=== PATIENT | male | born 1950 | race Caucasian/White ===

== ENCOUNTER 2016-11-23 15:13 | Inpatient (IN) | payer OTHER ==
[~2016-11-23] VITALS: Ht 180.3 cm; Wt 94.6 kg
[~2016-11-23 15:13] MED LIST: AMT10 PO; ASPEC81 PO; FLV1 PO; LEVO88TA3 PO; LTN/2025 PO; MTH25; MULTCAP33 PO; PRED-301 PO; ROSU5TAB PO; VITAMIN D PO
[2016-11-23] MEDS ORDERED: SODIUM CHLORIDE 0.9% 1000ML 1,000 ML IV SCH (15:45)
[2016-11-23] MEDS ORDERED: LABETALOL HCL IV 5 MG/ML 20ML IV STA (15:45)
[2016-11-23 16:15] LABS: BASO % 0.4 %; BASO ABS # 0.03 K/uL (0-0.2); COMPLETE YES; EOS % 3.7 %; IG% 0.4 %; LYMPH % 22.1 %; LYMPH ABS # 1.66 K/uL (1.2-3.4); MEAN CELL VOLUME 93.2 fL (80-100); MEAN CORPUSCULAR HEMOGLOBIN 31.9 pg (25-34); MEAN CORPUSCULAR HGB CONC 34.3 g/dl (32-36); MEAN PLATELET VOLUME 11.4 fL (7.4-10.4); MONO % 8.7 %; NEUT % 64.7 %; PLATELET COUNT 164 K/uL (130-400); RED BLOOD COUNT 4.29 M/uL (4.7-6.1); WHITE BLOOD COUNT 7.51 K/uL (4.8-10.8)
[2016-11-23 16:29] LABS: PROTHROMBIN TIME (PATIENT) 10.7 SECONDS (9.0-12.0)
[2016-11-23 16:37] LABS: BUN/CREATININE RATIO 17.6 (10-20); CALCIUM 8.6 mg/dl (8.5-10.1); CREATININE 0.97 mg/dl (0.60-1.40); POTASSIUM 3.8 mmol/L (3.5-5.1)
[2016-11-23 16:48] LABS: CKMB/CK RATIO 2.2 (0-3.0)
--- NOTE | 2016-11-23 17:32 | DIAGNOSTIC IMAGING REPORT ---
CT SCAN OF THE BRAIN WITHOUT IV CONTRAST CLINICAL HISTORY: Strokelike symptoms. COMPARISON STUDY: CT of the brain dated 09/22/2014. TECHNIQUE: Unenhanced axial CT scan of the brain is performed from the vertex to the skull base. Automated dose control exposure was utilized. CT DOSE: 687.98 mGy.cm FINDINGS: Brain parenchyma: The brain parenchyma is normal in appearance. There is no hemorrhage, mass effect, or evidence of acute territorial ischemia by CT criteria. Espinal-white matter is preserved. No extra-axial fluid collection is seen. Ventricles, sulci, cisterns: Normal in configuration. Intracranial vasculature: There is trace mucosal thickening in the left maxillary antrum. The remaining visualized intracranial vasculature at the skull base is normal in appearance. Calvarium: Unremarkable. Sinuses and mastoids: The visualized paranasal sinuses are clear. The mastoid air cells are well pneumatized. Orbits: The bony orbits are grossly intact. IMPRESSION: There is no hemorrhage, mass effect, or evidence of acute territorial ischemia by CT criteria. Electronically signed by: Juan Palmer M.D. 11/23/2016 5:30 PM
[2016-11-23] MEDS ORDERED: ASPIRIN 324 MG CHEW PO STA (17:39)
--- NOTE | 2016-11-23 17:41 | DIAGNOSTIC IMAGING REPORT ---
SINGLE VIEW CHEST CLINICAL HISTORY: Strokelike symptoms. Hypertension. FINDINGS: An AP, portable, upright chest radiograph is compared to study dated 09/22/2014 and correlated with chest CT dated 10/29/2011. The examination is mildly degraded by portable technique and patient rotation. The heart is mildly enlarged. The pulmonary vasculature is noncongested. The lungs and pleural spaces are clear. No pneumothorax is seen. The bony thorax is grossly intact. IMPRESSION: Mild cardiac enlargement with no acute cardiopulmonary abnormality. Electronically signed by: Juan Palmer M.D. 11/23/2016 5:39 PM
[2016-11-23] MEDS ORDERED: CYM/30 PO (18:01)
[2016-11-23] MEDS ORDERED: PHARMACIST DISCHARGE MED REC CONSULT PRN ×2 (18:15→22:45)
[2016-11-23] MEDS ORDERED: NITROGLYCERIN 0.4 MG SL PER TAB CHARGE SL PRN (18:15)
[2016-11-23] MEDS ORDERED: ONDANSETRON INJ 2 MG/ML 2 ML VIAL IV PRN (18:15)
[2016-11-23] MEDS ORDERED: ZOLPIDEM TARTRATE 5 MG TAB PO PRN (18:15)
[2016-11-23] MEDS ORDERED: ACETAMINOPHEN 325 MG TAB PO PRN (18:15)
[2016-11-23] MEDS ORDERED: POLYETHYLENE (MIRALAX) 17 GM PACK PO PRN (18:15)
[2016-11-23] MEDS ORDERED: ALUMINUM/MAGNESIUM/SIMETH (MAALOX MAX) 30 ML UDC PO PRN (18:15)
[2016-11-23] MEDS ORDERED: MAGNESIUM HYDROXIDE SUSP 30 ML UDC PO PRN (18:15)
--- NOTE | 2016-11-23 18:19 | History and Physical ---
History & Physical Date & Time of Service: Nov 23, 2016 at 18:19 Chief Complaint: Stroke Like Symptoms Primary Care Physician: Annabelle Hart D.O. History of Present Illness Source: patient The patient is a 66 year old male with past medical hx of HTN , hyperlipidemia , hypothyroidism , presented to ED with complain of rt sided transient weakness happened approx 2 hrs prior to arrival to ED today afternoon pt felt sudden onset of rt foot numbness , weakness -as if his rt foot giving away/slipping , did not sustain a fall , started to experience tingling numbness of rt arm rapidly the sensation changed to lack of sensation , Rt arm felt very heavy , can not lift it felt nauseous , headache , Dizzy and lightheaded felt confused , could not figure out how to unlock his I phone , briefly remembers he was holding his I phone with left hand and could not figure out what he was doing his symptom lasted for few minutes then resolved did not had any chest pain or SOB , no palpitation felt dizzy and lightheaded after arrival to ED he was completely symptom free other than continued numb feeling on rt arm which gradually improved pt's BP was markedly elevated 207/157 on arrival to ED during my Interview -pt was very coherent , no visual symptom , no dysarthria- concern about stoke as his older brother had similar symptom at his Age and suffered multiple mini strokes Past Medical/Surgical History Medical Problems: (1) Benign hypertension Status: Chronic (2) Chronic osteoarthritis Status: Chronic (3) Hiatal hernia Status: Chronic (4) History of urinary calculi Status: Chronic (5) Hyperlipidemia Status: Chronic (6) Hypothyroidism Status: Chronic (7) Rheumatoid arthritis Status: Chronic Surgical Problems: (1) Status post lumbar surgery Status: Chronic Family History Hypertension Social History Smoking Status: Never Smoker Marital Status: Occupational Status: employed Immunizations History of Influenza Vaccine: No History of Tetanus Vaccine?: Yes Tetanus Immunization Date: Jun 18, 2011 History of Pneumococcal: No History of Hepatitis B Vaccine: Unknown Multi-Drug Resistant Organisms History of MDRO: No Allergies Coded Allergies: Eggs or Egg-derived Products (Verified Allergy, Unknown, unknown, 11/23/16) Influenza Vaccine Live (Verified Allergy, Unknown, ., 11/23/16) Penicillins (Verified Allergy, Unknown, ., 11/23/16) Cerivastatin (Verified Adverse Reaction, Intermediate, elevated CPK, 1/1/ 17) Pravastatin (Verified Adverse Reaction, Intermediate, elevated LFT's, ) Simvastatin (Verified Adverse Reaction, Intermediate, elevated LFT's, ) Morphine (Verified Adverse Reaction, Mild, abnormal sensorium, 11/23/16) Codeine (Verified Adverse Reaction, Unknown, Confusion,nausea., 11/23/16) Home Medications Scheduled Amitriptyline Hcl (Elavil *), 10 MG PO HS Aspirin Enteric Coated (Ecotrin Or Generic *), 81 MG PO DAILY Benazepril/Hctz (Lotensin Hct), 1 TAB PO DAILY Duloxetine HCl (Cymbalta), 1 CAP PO DAILY Folic Acid (Folic Acid), 1 MG PO DAILY Levothyroxine Sodium (Levothyroxine Sodium), 88 MG PO DAILY Multiple Vitamins W/ Minerals (Preservision Areds), 1 CAP PO BID Rosuvastatin Calcium (Crestor), 5 MG PO DAILY [Vitamin D], 1 TAB PO DAILY Review of Systems Constitutional: + fatigue, + sweats, + weakness Eyes: + diplopia (bluured vision transiently ), + worsening of vision Respiratory: No cough, No dyspnea at rest, No dyspnea on exertion, No hemoptysis, No problem reported, No shortness of breath, No sputum, No wheezing Neurologic: + balance problems, + numbness/tingling, + paralysis, + problem reported (confusion ), + vertigo, + weakness Physical Exam Vital Signs Date Time Temp Pulse Resp B/P Pulse Ox O2 Delivery O2 Flow Rate FiO2 11/23/16 17:56 64 17 154/99 97 11/23/16 17:04 66 17 152/87 94 Room Air 11/23/16 16:19 93 Room Air 11/23/16 16:19 65 17 142/89 93 Room Air 11/23/16 16:14 63 18 173/99 97 Room Air 11/23/16 15:18 36.3 79 16 207/129 99 Room Air General Appearance: no apparent distress Head: normocephalic, atraumatic Eyes: PERRL, EOMI Neck: supple, no adenopathy, thyroid normal, no JVD, no carotid bruits, trachea midline Respiratory/Chest: chest non-tender, lungs clear, normal breath sounds, no respiratory distress Cardiovascular: regular rate, rhythm, no edema, no gallop, no JVD, no murmur, normal peripheral pulses Abdomen/GI: normal bowel sounds, non tender, soft Neurologic/Psych: alert, normal mood/affect, oriented x 3, + motor weakness ( rt arm weakness 4/5 ), + pertinent finding (mild weakness on rt arm ) Skin: normal color, warm/dry, no rash Lymphatic: no adenopathy Diagnostics Laboratory Results Results Past 24 Hours Test 11/23/16 16:03 11/23/16 18:14 Range/Units White Blood Count 7.51 4.8-10.8 K/uL Red Blood Count 4.29 4.7-6.1 M/uL Hemoglobin 13.7 14.0-18.0 g/dL Hematocrit 40.0 42-52 % Mean Corpuscular Volume 93.2 80-100 fL Mean Corpuscular Hemoglobin 31.9 25-34 pg Mean Corpuscular Hemoglobin Concent 34.3 32-36 g/dl Platelet Count 164 130-400 K/uL Mean Platelet Volume 11.4 7.4-10.4 fL Neutrophils (%) (Auto) 64.7 % Lymphocytes (%) (Auto) 22.1 % Monocytes (%) (Auto) 8.7 % Eosinophils (%) (Auto) 3.7 % Basophils (%) (Auto) 0.4 % Neutrophils # (Auto) 4.86 1.4-6.5 K/uL Lymphocytes # (Auto) 1.66 1.2-3.4 K/uL Monocytes # (Auto) 0.65 0.11-0.59 K/uL Eosinophils # (Auto) 0.28 0-0.5 K/uL Basophils # (Auto) 0.03 0-0.2 K/uL RDW Standard Deviation 41.3 36.4-46.3 fL RDW Coefficient of Variation 12.2 11.5-14.5 % Immature Granulocyte % (Auto) 0.4 % Immature Granulocyte # (Auto) 0.03 0.00-0.02 K/uL Prothrombin Time 10.7 9.0-12.0 SECONDS Prothromb Time International Ratio 1.0 0.9-1.1 Activated Partial Thromboplast Time 24.9 21.0-31.0 SECONDS Partial Thromboplastin Ratio 1.0 Sodium Level 143 136-145 mmol/L Potassium Level 3.8 3.5-5.1 mmol/L Chloride Level 107 98-107 mmol/L Carbon Dioxide Level 29 21-32 mmol/L Anion Gap 7.0 3-11 mmol/L Blood Urea Nitrogen 17 7-18 mg/dl Creatinine 0.97 0.60-1.40 mg/dl Est Creatinine Clear Calc Drug Dose 88.1 ml/min Estimated GFR () 93.9 Estimated GFR (Non- 81.0 BUN/Creatinine Ratio 17.6 10-20 Random Glucose 112 70-99 mg/dl Calcium Level 8.6 8.5-10.1 mg/dl Total Creatine Kinase 98 39-308 U/L Creatine Kinase MB 2.2 0.5-3.6 ng/ml Creatine Kinase MB Ratio 2.2 0-3.0 Troponin I 0.113 0-0.045 ng/ml Diagnostic Radiology CT SCAN OF THE BRAIN WITHOUT IV CONTRAST IMPRESSION: There is no hemorrhage, mass effect, or evidence of acute territorial ischemia by CT criteria. CXR normal EKG sinus rhythm Impression Assessment and Plan (1) TIA (transient ischemic attack) Status: Acute Assessment & Plan: Pt's symptom suggestive for TIA sudden onset of rt sided weakness, resolved in few minutes need to Rule out CVA -pt has multiple risk factors :HTN , hyperlipidemia , Family hx ( Brother having stroke /CAD s/p CABG at age 60's /another brother has Factor S deficiency ) ) admit to tele MRI OF BRAIN WITH AND WITH OUT CONTRAST MRA OF BRAIN /TUOLUMNE OF CRUMP cont Aspirin ; will need addition of Plavix if MRI of brain shows evidence of Acute CVA Hypercoagulable workup ordered including Factor S /Factor 5 /Protein C deficiency Judicial control of Blood pressure to allow permissive HTN for cerebral perfusion tele monitor to assess for arrhythmia /Afib ( no prior hx -EKG in ED shows NSR ) Carotid Doppler to assess carotid stenosis Fasting lipid panel in AM for risk stratification ECHO ordered for assessment of PFO , cardiac thrombus Neurology eval requested HTN: presented with accelerated HTN BP improved after some time cont out pt meds BP should not be lowered more than 160-170 SBP to allow adequate cerebral perfusion in setting of TIA /CVA ECHO to assess hypertensive cardiomyopathy HYPERLIPIDEMIA: cont out pt Statin fasting lipid panel ordered MILD ELEVATION OF TROPONIN : due to hypertensive urgency follow serial labs pt denies of any chest pain , EKG no ischemic change ECHO to asses any wall motion abnormality HYPOTHYROIDISM ; cont Levothyroxine TSH -wnl FULL CODE DVT PROPHYLAXIS : moderate risk Sub q heparin scd and teds DISPOSITION : admit to tele discharge to home when medically stable Medicine follow up with Dr Annabelle Hart VTE Prophylaxis VTE Risk Assessment Done? Y/N: Yes Risk Level: Moderate
--- NOTE | 2016-11-23 18:52 | EMERGENCY ROOM VISIT NOTE ---
History Report prepared by Angely: Kike Crawford Under the Supervision of: Dr. Santos Knott M.D. First contact with patient: 15:28 Chief Complaint: STROKE SYMPTOMS Stated Complaint: STROKE LIKE SYMPTOMS Nursing Triage Summary: Patient states he was upstairs in his has at 2pm today and he was walking around bed and felt like his foot was slipping on the floor and then "my whole right leg went numb" and then he went downstairs and his "right arm wouldn't move" and "I got really nauseated" and then he tried to pick of his cell phone and "I couldn't coordinate my thoughts to check the weather." Pt adds that pt c/o dizziness since 829 History of Present Illness The patient is a 66 year old male who presents to the Emergency Room with complaints of an episode of right sided neurologic symptoms beginning 1.5 hours ago. He states that his symptoms began with abnormal sensations in his right foot. He states "it felt like my right foot was sliding on the floor". The patient then developed right leg numbness, and then right arm "heaviness". He states that he felt a little confused as well. He states that these symptoms lasted for about a minute and a half. The patient has associated nausea, feeling "unsteady", and headache which all began when he woke up this morning. He denies any runny nose, visual changes, or chest pain. He notes that his brother has a history of a stroke at a similar age. The patient has no history of stroke, or heart disease. He denies any recent falls or trauma. He piotr any recent medication changes. Source of History: patient Onset: 1.5 hours ago Position: other (right side) Symptom Intensity: 1.5 minutes long Quality: other (neurologic symptoms) Timing: other (episode) Associated Symptoms: + headache, + nausea, No chest pain Note: The patient denies any runny nose, or visual changes. He has associated feeling "unsteady". Review of Systems See HPI for pertinent positives & negatives. A total of 10 systems reviewed and were otherwise negative. Past Medical & Surgical Medical Problems: (1) Benign hypertension (2) Chronic osteoarthritis (3) Hiatal hernia (4) History of urinary calculi (5) Hyperlipidemia (6) Hypothyroidism (7) Rheumatoid arthritis (8) TIA (transient ischemic attack) Surgical Problems: (1) Status post lumbar surgery Family History Hypertension Social History Smoking Status: Never Smoker Alcohol Use: occasionally Marital Status: Housing Status: lives with significant other Occupation Status: employed Current/Historical Medications Scheduled Amitriptyline Hcl (Elavil *), 10 MG PO HS Aspirin Enteric Coated (Ecotrin Or Generic *), 81 MG PO DAILY Benazepril/Hctz (Lotensin Hct), 1 TAB PO DAILY Duloxetine HCl (Cymbalta), 1 CAP PO DAILY Folic Acid (Folic Acid), 1 MG PO DAILY Levothyroxine Sodium (Levothyroxine Sodium), 88 MG PO DAILY Multiple Vitamins W/ Minerals (Preservision Areds), 1 CAP PO BID Rosuvastatin Calcium (Crestor), 5 MG PO DAILY [Vitamin D], 1 TAB PO DAILY Allergies Coded Allergies: Eggs or Egg-derived Products (Verified Allergy, Unknown, unknown, 11/23/16) Influenza Vaccine Live (Verified Allergy, Unknown, ., 11/23/16) Penicillins (Verified Allergy, Unknown, ., 11/23/16) Cerivastatin (Verified Adverse Reaction, Intermediate, elevated CPK, ) Pravastatin (Verified Adverse Reaction, Intermediate, elevated LFT's, ) Simvastatin (Verified Adverse Reaction, Intermediate, elevated LFT's, ) Morphine (Verified Adverse Reaction, Mild, abnormal sensorium, 11/23/16) Codeine (Verified Adverse Reaction, Unknown, Confusion,nausea., 11/23/16) Physical Exam Vital Signs Date Time Temp Pulse Resp B/P Pulse Ox O2 Delivery O2 Flow Rate FiO2 11/23/16 17:56 64 17 154/99 97 11/23/16 17:04 66 17 152/87 94 Room Air 11/23/16 16:19 93 Room Air 11/23/16 16:19 65 17 142/89 93 Room Air 11/23/16 16:14 63 18 173/99 97 Room Air 11/23/16 15:18 36.3 79 16 207/129 99 Room Air Physical Exam GENERAL: Patient is anxious appearing and in no acute distress. HEENT: No acute trauma, normocephalic atraumatic, mucous membranes moist, no nasal congestion, no scleral icterus. NECK: No stridor, no adenopathy, no meningismus, trachea is midline. LUNGS: No dyspnea. Clear to auscultation and equal bilaterally. No wheeze, no rhonchi. HEART: Regular rate and rhythm. No murmurs, rubs, gallops appreciated. ABDOMEN: Soft, nontender, bowel sounds positive, no masses appreciated, no peritonitis. BACK: No midline tenderness, no CVA tenderness EXTREMITIES: Normal motion all extremities, no cyanosis, no edema. NEUROLOGIC: Alert and oriented, no acute motor or sensory deficits, no focal weakness, cranial nerves grossly intact. SKIN: No rash, no jaundice, no diaphoresis. Medical Decision & Procedures ER Provider Diagnostic Interpretation: X ray results and stated below per my interpretation and radiologist interpretation. Other radiology results and stated below per my review and radiologist interpretation: SINGLE VIEW CHEST FINDINGS: An AP, portable, upright chest radiograph is compared to study dated 09/22/2014 and correlated with chest CT dated 10/29/2011. The examination is mildly degraded by portable technique and patient rotation. The heart is mildly enlarged. The pulmonary vasculature is noncongested. The lungs and pleural spaces are clear. No pneumothorax is seen. The bony thorax is grossly intact. IMPRESSION: Mild cardiac enlargement with no acute cardiopulmonary abnormality. Electronically signed by: Juan Palmer M.D. CT SCAN OF THE BRAIN WITHOUT IV CONTRAST FINDINGS: Brain parenchyma: The brain parenchyma is normal in appearance. There is no hemorrhage, mass effect, or evidence of acute territorial ischemia by CT criteria. Espinal-white matter is preserved. No extra-axial fluid collection is seen. Ventricles, sulci, cisterns: Normal in configuration. Intracranial vasculature: There is trace mucosal thickening in the left maxillary antrum. The remaining visualized intracranial vasculature at the skull base is normal in appearance. Calvarium: Unremarkable. Sinuses and mastoids: The visualized paranasal sinuses are clear. The mastoid air cells are well pneumatized. Orbits: The bony orbits are grossly intact. IMPRESSION: There is no hemorrhage, mass effect, or evidence of acute territorial ischemia by CT criteria. Electronically signed by: Juan Palmer M.D. Laboratory Results 11/23/16 16:03 Red Blood Count 4.29, Mean Corpuscular Volume 93.2, Mean Corpuscular Hemoglobin 31.9, Mean Corpuscular Hemoglobin Concent 34.3, Mean Platelet Volume 11.4, Neutrophils (%) (Auto) 64.7, Lymphocytes (%) (Auto) 22.1, Monocytes (%) (Auto) 8.7, Eosinophils (%) (Auto) 3.7, Basophils (%) (Auto) 0.4, Neutrophils # (Auto) 4.86, Lymphocytes # (Auto) 1.66, Monocytes # (Auto) 0.65, Eosinophils # (Auto) 0.28, Basophils # (Auto) 0.03 11/23/16 16:03 Test 11/23/16 16:03 White Blood Count 7.51 K/uL (4.8-10.8) Red Blood Count 4.29 M/uL (4.7-6.1) Hemoglobin 13.7 g/dL (14.0-18.0) Hematocrit 40.0 % (42-52) Mean Corpuscular Volume 93.2 fL (80-100) Mean Corpuscular Hemoglobin 31.9 pg (25-34) Mean Corpuscular Hemoglobin Concent 34.3 g/dl (32-36) Platelet Count 164 K/uL (130-400) Mean Platelet Volume 11.4 fL (7.4-10.4) Neutrophils (%) (Auto) 64.7 % Lymphocytes (%) (Auto) 22.1 % Monocytes (%) (Auto) 8.7 % Eosinophils (%) (Auto) 3.7 % Basophils (%) (Auto) 0.4 % Neutrophils # (Auto) 4.86 K/uL (1.4-6.5) Lymphocytes # (Auto) 1.66 K/uL (1.2-3.4) Monocytes # (Auto) 0.65 K/uL (0.11-0.59) Eosinophils # (Auto) 0.28 K/uL (0-0.5) Basophils # (Auto) 0.03 K/uL (0-0.2) RDW Standard Deviation 41.3 fL (36.4-46.3) RDW Coefficient of Variation 12.2 % (11.5-14.5) Immature Granulocyte % (Auto) 0.4 % Immature Granulocyte # (Auto) 0.03 K/uL (0.00-0.02) Prothrombin Time 10.7 SECONDS (9.0-12.0) Prothromb Time International Ratio 1.0 (0.9-1.1) Activated Partial Thromboplast Time 24.9 SECONDS (21.0-31.0) Partial Thromboplastin Ratio 1.0 Anion Gap 7.0 mmol/L (3-11) Est Creatinine Clear Calc Drug Dose 88.1 ml/min Estimated GFR () 93.9 Estimated GFR (Non- 81.0 BUN/Creatinine Ratio 17.6 (10-20) Calcium Level 8.6 mg/dl (8.5-10.1) Total Creatine Kinase 98 U/L (39-308) Creatine Kinase MB 2.2 ng/ml (0.5-3.6) Creatine Kinase MB Ratio 2.2 (0-3.0) Troponin I 0.113 ng/ml (0-0.045) Thyroid Stimulating Hormone (TSH) 1.330 uIu/ml (0.300-4.500) Medications Administered Medications (Trade) Dose Ordered Sig/Alphonse Route Start Time Stop Time Status Last Admin Dose Admin Labetalol HCl 10 mg 10 mg NOW STAT IV 11/23/16 15:45 11/23/16 15:47 DC 11/23/16 16:17 10 MG Sodium Chloride (Nss 1000ml) 1,000 ml @ 50 mls/hr Q20H IV 11/23/16 15:45 11/23/16 19:30 DC 11/23/16 16:17 50 MLS/HR Aspirin (Aspirin Chew) 324 mg NOW STAT PO 11/23/16 17:39 11/23/16 17:40 DC 11/23/16 18:02 324 MG ECG Indication: other (neuro symptoms) Rate (beats per minute): 68 Rhythm: normal sinus Findings: no acute ischemic change, no ectopy ED Course 1528: The patient was evaluated in room C11. A complete history and physical exam was performed. 1545: Ordered NSS 1000 mL @ 50 mL/hr IV, Normodyne 10 mg IV. 1710: I checked in on the patient. He is feeling okay, but notes that he was experiencing a tremor in his hand earlier. 1739: Ordered Aspirin 324 mg PO. 1751: Upon reevaluation, the patient is resting comfortably. Discussed results and treatment plan with the patient. He verbalized understanding and agreement with the treatment plan. The patient will be evaluated for further management. Medical Decision Differential: Sepsis, Infectious (UTI/Pneumonia/Meningitis/etc), Metabolic/ Electrolyte Abnormality, Cardiac, Hepatic, Endocrine, Toxicologic, Neurologic, amongst other pathologies entertained. Pleasant 66 yr old male arrives noting he had a several minute episode of right arm/leg weakness which has resolved and now feeling much improved. noted some unsteadiness on coming in though currently neuro intact and unremarkable. Is somewhat hypertensive thus given small dose labetalol with much improvement. No chest pain though does note he was feeling weak and tired earlier. Trop is bumped of unknown significance though clearly needs further evaluation/work- up. EKG looks OK without ischemia and without chest pain would not start heparin at this time. CT head is negative for acute bleeding, etc. Given ASA for ACS and TIA protection. Stable throughout rest of ED stay. Impression Primary Impression: Elevated troponin Additional Impressions: Right arm weakness, TIA (transient ischemic attack) Scribe Attestation The scribe's documentation has been prepared under my direction and personally reviewed by me in its entirety. I confirm that the note above accurately reflects all work, treatment, procedures, and medical decision making performed by me. Departure Information Dispostion Being Evaluated By Hospitalist Referrals Annabelle Sykes D.O. (PCP) Patient Instructions A Signature Page, My [facility]
[2016-11-23 19:30] VITALS: BP 207/120; PULSE 62; TEMP 36.6; O2SAT 98
[2016-11-23] MEDS: HydrALAZINE HCL 20 MG/ML VIAL IV. PRN (19:50)
[2016-11-23 19:56] VITALS: BP 207/120; PULSE 65; TEMP 36.6; O2SAT 97; Ht 180.3 cm; Wt 94.6 kg
[2016-11-23 20:39] VITALS: BP 164/90
[2016-11-23] MEDS ORDERED: LORAZEPAM 2 MG/ML 1 ML VIAL IV PRN (20:45)
[2016-11-23] MEDS: HEPARIN SOD 5000 UNIT/0.5 ML CARP SQ SCH (20:58)
[2016-11-23] MEDS ORDERED: ENALAPRILAT IV 1.25 MG in DEXTROSE 5% 25ML 25 ML IV PRN (22:15)
--- NOTE | 2016-11-23 22:41 | DIAGNOSTIC IMAGING REPORT ---
BONY ORBITS 3 VIEWS CLINICAL HISTORY: MRI clearance. History of metal in the eye. FINDINGS: 3 views of the bony orbits are obtained. There is no radiodense/metallic foreign body identified in the region of the orbits. The bony orbits are intact as visualized. The imaged paranasal sinuses appear clear. The mastoid air cells appear well-pneumatized. The imaged calvarium appears intact. IMPRESSION: There is no radiodense/metallic foreign body identified in the region of the orbits. Electronically signed by: Juan Palmer M.D. 11/23/2016 10:38 PM
[2016-11-23] MEDS ORDERED: GADAVIST IV PRN (23:30)
[2016-11-24] VITALS (10 sets, daily range): BP systolic 154–194; BP diastolic 83–112; PULSE 64–74; TEMP 36.6–36.9; O2SAT 94–99
[2016-11-24] MEDS: AMITRIPTYLINE HCL 10 MG TAB PO SCH ×2 (00:04→22:43)
[2016-11-24 01:21] LABS: CKMB/CK RATIO 2.1 (0-3.0)
[2016-11-24] MEDS: LEVOTHYROXINE 88 MCG TAB PO SCH (05:39)
[2016-11-24 05:51] LABS: BASO % 0.6 %; BASO ABS # 0.04 K/uL (0-0.2); COMPLETE YES; HEMATOCRIT 39.2 % (42-52); IG% 0.4 %; LYMPH % 29.9 %; LYMPH ABS # 2.16 K/uL (1.2-3.4); MEAN CELL VOLUME 93.6 fL (80-100); MEAN CORPUSCULAR HEMOGLOBIN 32.2 pg (25-34); MEAN CORPUSCULAR HGB CONC 34.4 g/dl (32-36); MEAN PLATELET VOLUME 11.5 fL (7.4-10.4); MONO % 6.8 %; NEUT % 58.3 %; PLATELET COUNT 161 K/uL (130-400); RED BLOOD COUNT 4.19 M/uL (4.7-6.1); WHITE BLOOD COUNT 7.22 K/uL (4.8-10.8)
[2016-11-24 05:51] LABS: BENZODIAZEPINE, URINE NEG (NEG); COCAINE,URINE NEG (NEG); PHENCYCLIDINE, URINE NEG (NEG)
[2016-11-24 06:24] LABS: BUN/CREATININE RATIO 17.5 (10-20); CALCIUM 8.5 mg/dl (8.5-10.1); CREATININE 0.89 mg/dl (0.60-1.40); POTASSIUM 3.6 mmol/L (3.5-5.1)
--- NOTE | 2016-11-24 06:50 | DIAGNOSTIC IMAGING REPORT ---
MRI OF THE BRAIN WITHOUT AND WITH IV CONTRAST CLINICAL HISTORY: Stroke. Leg weakness. COMPARISON STUDY: MRI of the brain September 22, [address] November 23, 2016. TECHNIQUE: Utilizing a 1.5 Marline magnet and dedicated coil, multiplanar, multiecho imaging of the brain was performed pre and postcontrast administration. IV administration of 9 mL of Gadavist contrast was uneventful. FINDINGS: There are no areas of restricted diffusion. A 5 mm focus of increased signal intensity within the periventricular white matter of the left parietal lobe shown on image 14 of 46 on the diffusion-weighted sequence is isointense on the ADC map. The ventricular system is stable. No acute intracranial hemorrhage, midline shift or mass effect is present. No intracranial mass or pathologic enhancement is present. Flow-voids for the major intracranial vessels are present. Scattered white matter T2 hyperintense foci suggest small vessel disease. A right maxillary sinus mucous retention cyst is noted. IMPRESSION: 1. No convincing evidence for acute infarct. A 5 mm focus focus of increased signal intensity within the periventricular white matter of the left parietal lobe may reflect a subacute to chronic lacunar infarct. 2. No intracranial masses or pathologic enhancement. Electronically signed by: Syd Jeronimo M.D. 11/24/2016 6:48 AM
--- NOTE | 2016-11-24 06:53 | DIAGNOSTIC IMAGING REPORT ---
CAROTID ARTERY ULTRASOUND CLINICAL HISTORY: Stroke like symptoms. Leg weakness. COMPARISON STUDY: MRA of the neck September 22, 2014 and carotid ultrasound September 23, 2014. TECHNIQUE: Real-time, grayscale, and color Doppler sonography of the carotid and vertebral arteries was performed. Images were viewed in the transverse and longitudinal planes. FINDINGS: There is minimal atherosclerotic plaque. Velocity measurements are listed below. COMMON CAROTID PEAK SYSTOLIC VELOCITY (CM/S): RIGHT 82 LEFT 81 ICA PEAK SYSTOLIC VELOCITY (CM/S): RIGHT 63 LEFT 63 The systolic ratios between the internal to common carotid arteries were normal. Antegrade flow is seen in the vertebral arteries. The external carotid arteries are patent. Blood pressure in the right arm measured 176/91. Blood pressure in the left arm measured 160/91. IMPRESSION: No evidence of a hemodynamically significant stenosis. Electronically signed by: Syd Jeronimo M.D. 11/24/2016 6:51 AM
--- NOTE | 2016-11-24 07:15 | DIAGNOSTIC IMAGING REPORT ---
Brain MRA HISTORY: Stroke - Attention to [place] [facility] [place] TECHNIQUE: 3-D [id number] MRA of the brain was performed without contrast. COMPARISON STUDY: None. FINDINGS: Visualized intracranial internal carotid arteries, distal vertebral arteries, and basilar artery are widely patent. 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 IMPRESSION: No significant stenosis, occlusion, or aneurysm within the [place]. Electronically signed by: Meño Barlow M.D. 11/24/2016 7:13 AM
[2016-11-24] MEDS: CEROVITE ADV FORMULA TAB PO SCH (07:33)
[2016-11-24] MEDS: HYDROCHLOROTHIAZIDE 25 MG TAB PO SCH (07:33)
[2016-11-24] MEDS: HEPARIN SOD 5000 UNIT/0.5 ML CARP SQ SCH ×2 (07:40→20:43)
[2016-11-24 08:12] LABS: ESTIMATED AVERAGE GLUCOSE 105 mg/dl; HA1C FLAG Normal (Normal)
[2016-11-24 08:57] LABS: CKMB/CK RATIO 1.8 (0-3.0)
[2016-11-24] MEDS ORDERED: ENALAPRIL MALEATE 10 MG TAB PO SCH (09:00)
[2016-11-24] MEDS ORDERED: ROSUVASTATIN CALCIUM 5 MG TAB PO SCH (09:00)
[2016-11-24] MEDS ORDERED: ASPIRIN 81 MG ECTAB PO SCH (09:00)
[2016-11-24] MEDS ORDERED: BENAZEPRIL PO SCH (09:00)
[2016-11-24] MEDS ORDERED: HCTZ PO SCH (09:00)
[2016-11-24] MEDS ORDERED: DULOXETINE (CYMBALTA) 30 MG CAP PO SCH (09:00)
[2016-11-24] MEDS ORDERED: CLOPIDOGREL BISULFATE 75 MG TAB PO SCH (13:00)
--- NOTE | 2016-11-24 13:19 | NEUROLOGY CONSULTATION ---
DATE OF CONSULTATION: 11/24/2016 REASON FOR CONSULTATION: Possible transient ischemic attack. HISTORY OF PRESENT ILLNESS: Mr. Sanchez is a 66-year-old right-handed male with a history of hypertension, hyperlipidemia, hypothyroidism, and inflammatory arthropathy, who presents to the ER with complaints of transient right-sided weakness and numbness. The patient was in his usual state of health and was making a bed. He noted his right foot was slipping in the room, which persisted when he took off his slipper. The right leg became numb but not paresthetic and then the right arm became weak and heavy. He sat down, felt mildly confused, did not know what he had wanted to do with his cellphone, did not lose consciousness. He attempted to speak and there was no change in his speech or language. There was no change in his vision. He has had a headache for 2 weeks and that headache persisted. There was mild nausea. There was discussion of dizziness at that time although the patient did not spontaneously offer that to me. Symptoms lasted 4 or 5 minutes. No change in headache or altered consciousness. He has been generally well. He was thought in the past to have rheumatoid arthritis and was on prednisone, methotrexate and folic acid. About 2 months ago, these were discontinued after I am sure the steroids were tapered and he has felt diffusely achy and flu-like since. He has diffuse arthralgias and myalgias. For 2 weeks, he has had a frontal throbbing headache with nausea. He has no photophobia, phonophobia. There has been weight gain. He on one occasion while looking at a computer, had some blurred vision which was binocular, meaning it did not resolve with the eye closure, covering 1 eye although was seen to be worse in the right eye than the left eye. There is no jaw claudication. He has no prior history of neurologic symptoms, although 2 years ago he had admission to the hospital for leg weakness, he tried to stand and felt generally weak. The patient indicates it was thought that he was dehydrated. I have reviewed his MRI from that hospitalization, it was unremarkable. He has otherwise been well. No head or neck injury, chiropractic manipulation of the neck, chest pain, palpitations. He has had mild shortness of breath with exertion. No calf swelling or tenderness. PAST MEDICAL HISTORY: Hypertension, osteoarthritis, hiatal hernia, kidney stones, hyperlipidemia, hypothyroidism, inflammatory arthritis. He is status post lumbar surgery. SOCIAL HISTORY: Does not smoke, rarely drinks alcohol. 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 ALLERGIES: EGG OR EGG DERIVED PRODUCTS, INFLUENZA VACCINE, PENICILLIN, CERIVASTATIN, PRAVASTATIN, SIMVASTATIN, MORPHINE, CODEINE. MEDICATIONS: Amitriptyline, aspirin 81, Lotensin, Cymbalta, folic acid, levothyroxine, PreserVision AREDS, Crestor, vitamin D. FAMILY HISTORY: A brother had multiple TIAs in his 60s and then went on to soon thereafter have bypass surgery. A brother has protein S deficiency. LABS: White count 7.2, H\T\H 13.5/39, and platelet count 161. PT 10.7, PTT 24.9. Hypercoagulability profile is pending including protein S. DANDRE is pending, hep C pending. Chemistry profile: Sodium 143, potassium 3.8, BUN and creatinine 17/0.9, random glucose 112, calcium 8.6, CK 98, troponin 0.113. CK has remained stable and normal. Troponin today is 0.019, triglycerides 273, LDL 104, and HDL 32. TSH is normal, homocysteine pending. EKG: Sinus, voltage criteria for LVH. PHYSICAL EXAMINATION: VITAL SIGNS: Blood pressure on admission was 207/129, 36.3, 79, 16, 99%. Repeat 36.3, 65, 17, 142/89, 93%. GENERAL: The patient is awake and alert. He is an excellent historian. His fund of knowledge is normal. He is oriented and there is no speech or language dysfunction. NECK: There are no carotid bruits. The neck is supple. HEART: No heart murmurs. Heart is regular rate and rhythm. LUNGS: Clear. BACK: No spinal tenderness is noted. HEENT: There is no temporal artery tenderness. There are normal temporal artery pulsations. No sinus tenderness. There may be a minor jaw click. Pupils are equal, round, reactive to light. The optic nerves are unremarkable. There is normal field, motility, facial sensation and facial symmetry. Tongue is midline. EXTREMITIES: General exam: Normal radial pulses, posterior tibial pulses. No calf swelling or tenderness. Motor: Normal bulk and tone. Full strength, no drift. Normal rapid alternating movements. Symmetrically mildly reduced reflexes. Downgoing toes. [id number] and edzy-fc-bnfs are normal. There is intact light touch, temperature and vibration is present at the ankles. Gait and tandem are normal. IMPRESSION: Presumed transient ischemic attack, localization unclear. 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 Carotid ultrasound, no hemodynamically significant stenosis. MRA of the head, no stenosis. Echocardiography not yet done. PLAN: Echo with bubble study. Continue cardiac monitoring, likely outpatient CardioNet monitor. We would add Plavix to his aspirin 81 and continue aspirin for 3 months and then discontinue. Optimize LDL to 70 or below. I have ordered an EEG, although doubt that this represented a partial complex seizure. Recommend MRA of the head, given some suggestion with the nausea and by report dizziness, that this could be posterior circulation. Finally, the patient has had significant headaches and myalgias. I will order a sed rate. Temporal arteritis, which can present with posterior circulation ischemia is within the differential as is PMR. We may need to obtain the consultation of rheumatology as well. We will follow with you. ILDA
[2016-11-24] MEDS ORDERED: PERFLUTREN LIPID MICROSPHERE (DEFINITY) IV ONE (14:58)
[2016-11-24] MEDS ORDERED: PLV75 PO (15:21)
[2016-11-24] MEDS ORDERED: CRS5 PO (15:21)
--- NOTE | 2016-11-24 15:23 | Discharge Instructions ---
Discharge Instructions Admission Reason for Admission: TIA Discharge Discharge Diagnosis / Problem: TIA /HYPERLIPIDEMIA Discharge Goals Goal(s): Improve disease control, Diagnostic testing, Therapeutic intervention Activity Recommendations Activity Limitations: resume your previous activity . Instructions / Follow-Up Instructions / Follow-Up HOSPITAL FOLLOW UP WITH DR Annabelle Sykes, ON 12/04/2016 @ 1:20 PM Family Practice [facility] Rheumatology follow up with Dr Ayan Garza MD on 12/08/2016 @ 11:20 AM Rheumatology Clinic [facility] LAB WORK : FASTING LIPID PANEL IN 4 WEEKS Risk Factors for Stroke: You can reduce your chances of stroke by working with your medical provider to adopt a healthy lifestyle. Some specific ways to lower your chance of stroke are: * If you are a smoker, now is the time to stop smoking cigarettes * If you are diabetic, improve the control of your blood sugars * Avoid excessive amounts of alcohol * Control high blood pressure * Lose weight if you are overweight * Be sure to lead an active lifestyle * Eat a healthy diet low in salt, cholesterol and fat You should know about other risk factors for stroke that you are unable to control. These include: * Age 55 years or older * Male gender * Certain racial groups: , or / * Family History of Stroke, Mini stroke or Heart Attack * Sickle Cell Disease Follow Up: It is important for you to keep your follow up appointments with your medical provider. Current Hospital Diet Patient's current hospital diet: AHA Diet (Heart Healthy) Discharge Diet Recommended Diet: AHA Diet (Heart Healthy) Pending Studies Studies pending at discharge: yes List of pending studies: FASTING LIPID PANEL IN 4 WEEKS Laboratory Results Hemoglobin A1c Test 11/23/16 16:03 Range/Units Estimated Average Glucose 105 mg/dl Hemoglobin A1c 5.3 4.5-5.6 % Lipid Panel Test 11/24/16 05:30 Range/Units Triglycerides Level 273 H 0-150 mg/dl Cholesterol Level 191 0-200 mg/dl HDL Cholesterol 32 mg/dl Cholesterol/HDL Ratio 6.0 LDL Cholesterol, Calculated 104 mg/dl Medical Emergencies . Who to Call and When: Medical Emergencies: Call 911 immediately if you experience any of the following warning signs and symptoms of Stroke: * Sudden numbness or weakness of the face, arm or leg, especially on one side of the body * Sudden confusion, trouble speaking or understanding * Sudden trouble seeing in one or both eyes * Sudden trouble walking, dizziness, loss of balance or coordination * Sudden severe headache with no cause Do not delay calling 911 if you experience any warning signs or symptoms of a stroke. Delay in seeking medical attention may affect what treatments can be given to you. . Non-Emergent Contact Non-Emergency issues call your: Primary Care Provider . . "Provider Documentation" section prepared by Madison Desai. Stroke Core Measures Reason no t-PA for Stroke: Treatment not indicated Reason no antithrom by day 2: Treatment provided - N/A Reason no antithrom at D/C: Treatment provided - N/A Reason no statin at D/C: Treatment provided - N/A Reason no anticoag w/a fib: Treatment not indicated VTE Core Measure Inpt VTE Proph given/why not?: Unfractionated heparin SQ PA Drug Monitoring Program Search Results: no issues identified
[2016-11-24] MEDS: DULOXETINE (CYMBALTA) 30 MG CAP PO SCH (17:07)
--- NOTE | 2016-11-24 21:00 | Progress Note ---
Internal Med Progress Note Date of Service: Nov 24, 2016. Provider Documentation: SUBJECTIVE: does not have any recurrent symptom of paresthesia , weakness OBJECTIVE: Vital Signs-as noted below Exam: General-no sign of distress Eyes-sclera non icteric , PERRLA/EOMI ENT-NAD Neck-no carotid bruit , trachea midline , no thyromegaly Lungs-CTA, no wheeze or rales Heart-regular S1/s2 Abdomen-soft, non tender Extremities-no rash or deformity Neuro-no focal neurological deficit Lab data as noted below. ASSESSMENT & PLAN: TIA (transient ischemic attack) Pt's symptom suggestive for TIA presented with sudden onset of rt sided weakness, resolved in few minutes MRI OF BRAIN : 1. No convincing evidence for acute infarct. A 5 mm focus focus of increased signal intensity within the periventricular white matter of the left parietal lobe may reflect a subacute to chronic lacunar infarct. 2. No intracranial masses or pathologic enhancement. cont Aspirin added Plavix Hypercoagulable workup ordered including Factor S /Factor 5 /Protein C deficiency Carotid Doppler no evidence of carotid stenosis Neurology eval requested -appreciate input MRA of neck ordered to rule out post circulation pathology HTN: BP remains elevated on HCTZ , ACEI will increase Lisinopril to 30 mg need close follow up with PCP for BP monitoring HYPERLIPIDEMIA: fasting lipid panel LDL elevated > 100 increased Crestor to 10 mg daily repeat fasting lipid panel in 4 weeks MILD ELEVATION OF TROPONIN : due to hypertensive urgency pt denies of any chest pain , EKG no ischemic change ECHO ordered , report pending HYPOTHYROIDISM ; cont Levothyroxine TSH -wnl FULL CODE DVT PROPHYLAXIS : moderate risk Sub q heparin scd and teds DISPOSITION : discharge to home tomorrow Medicine follow up with Dr Annabelle Hart DVT PROPHYLAXIS [] DISPOSITION [] Vital Signs: Date Time Temp Pulse Resp B/P Pulse Ox O2 Delivery O2 Flow Rate FiO2 11/24/16 23:38 36.9 69 18 194/112 99 Room Air 11/24/16 20:04 Room Air 11/24/16 19:28 36.7 69 22 157/108 94 Room Air 154/101 11/24/16 16:38 36.7 68 18 159/95 96 Room Air 11/24/16 16:00 96 Room Air 11/24/16 12:04 36.9 73 20 154/96 97 Room Air 11/24/16 12:00 Room Air 11/24/16 10:45 74 97 11/24/16 08:00 36.6 66 20 172/100 96 Room Air 11/24/16 08:00 96 Room Air 11/24/16 04:02 Room Air 11/24/16 03:11 36.6 73 15 154/83 94 Room Air 11/24/16 00:13 36.6 64 18 170/98 96 Room Air Lab Results: Results Past 24 Hours Test 11/24/16 00:41 11/24/16 05:20 11/24/16 05:30 11/24/16 08:12 Range/Units Total Creatine Kinase 84 83 39-308 U/L Creatine Kinase MB 1.8 1.5 0.5-3.6 ng/ml Creatine Kinase MB Ratio 2.1 1.8 0-3.0 Troponin I 0.119 0.109 0-0.045 ng/ml Urine Opiates Screen NEG NEG Urine Methadone, Qualitative NEG NEG Urine Barbiturates NEG NEG Urine Phencyclidine (PCP) Level NEG NEG Ur Amphetamine/Methamphetamine NEG NEG MDMA (Ecstasy) Screen NEG NEG Urine Benzodiazepines Screen NEG NEG Urine Cocaine Metabolite NEG NEG Urine Marijuana (THC) NEG NEG White Blood Count 7.22 4.8-10.8 K/uL Red Blood Count 4.19 4.7-6.1 M/uL Hemoglobin 13.5 14.0-18.0 g/dL Hematocrit 39.2 42-52 % Mean Corpuscular Volume 93.6 80-100 fL Mean Corpuscular Hemoglobin 32.2 25-34 pg Mean Corpuscular Hemoglobin Concent 34.4 32-36 g/dl Platelet Count 161 130-400 K/uL Mean Platelet Volume 11.5 7.4-10.4 fL Neutrophils (%) (Auto) 58.3 % Lymphocytes (%) (Auto) 29.9 % Monocytes (%) (Auto) 6.8 % Eosinophils (%) (Auto) 4.0 % Basophils (%) (Auto) 0.6 % Neutrophils # (Auto) 4.21 1.4-6.5 K/uL Lymphocytes # (Auto) 2.16 1.2-3.4 K/uL Monocytes # (Auto) 0.49 0.11-0.59 K/uL Eosinophils # (Auto) 0.29 0-0.5 K/uL Basophils # (Auto) 0.04 0-0.2 K/uL RDW Standard Deviation 41.9 36.4-46.3 fL RDW Coefficient of Variation 12.4 11.5-14.5 % Immature Granulocyte % (Auto) 0.4 % Immature Granulocyte # (Auto) 0.03 0.00-0.02 K/uL Erythrocyte Sedimentation Rate 3 0-14 mm/hr Sodium Level 144 136-145 mmol/L Potassium Level 3.6 3.5-5.1 mmol/L Chloride Level 110 98-107 mmol/L Carbon Dioxide Level 25 21-32 mmol/L Anion Gap 9.0 3-11 mmol/L Blood Urea Nitrogen 16 7-18 mg/dl Creatinine 0.89 0.60-1.40 mg/dl Est Creatinine Clear Calc Drug Dose 96.0 ml/min Estimated GFR () 103.3 Estimated GFR (Non- 89.1 BUN/Creatinine Ratio 17.5 10-20 Random Glucose 93 70-99 mg/dl Calcium Level 8.5 8.5-10.1 mg/dl Triglycerides Level 273 0-150 mg/dl Cholesterol Level 191 0-200 mg/dl HDL Cholesterol 32 mg/dl LDL Cholesterol, Calculated 104 mg/dl VLDL Cholesterol, Calculated 55 mg/dl Cholesterol/HDL Ratio 6.0 Hepatitis C Antibody Screen NEG NEG
[2016-11-24] MEDS: HydrALAZINE HCL 20 MG/ML VIAL IV. PRN (23:42)
[2016-11-25] VITALS (10 sets, daily range): BP systolic 114–184; BP diastolic 65–107; PULSE 81–100; TEMP 36.3–36.8; O2SAT 90–99
[2016-11-25] MEDS ORDERED: METHYLPREDNISOLONE 125 MG VIAL ONE (00:47)
[2016-11-25] MEDS ORDERED: DiphenhydrAMINE HCL 50 MG/ML VIAL IV STA (01:01)
[2016-11-25] MEDS ORDERED: ACETAMINOPHEN IV 650 MG in EMPTY BAG 0 ML IV PRN (01:15)
[2016-11-25] MEDS ORDERED: METHYLPREDNISOLONE IV 60 MG in SYRINGE 0 ML IV STA (01:24)
--- NOTE | 2016-11-25 01:30 | Progress Note ---
Progress Note ATTENDING NOTE: pt seen in MRI scan after coming out of MRI scanner -pt complains of not feeling well having burning sensation in his throat , becomes tachycardic , hypotensive with audible wheeze complains of trouble breathing , was found to be tachycardic HR > 150 placed on NRB mask ; 15 L 02 Spo2 98 % hypertensive SBP in 200 stat IV Solu Medrol 60 mg /Benadryl 50 IV mg given breathing improved gradually ; able to transition to Nasal Canula after return to PCU HR improved to 78 BP remains elevated 180 ordered for IV Vasotec pt complains of sharp pain back of both eye , seeing black spots , floaters visual cut on inner /lower field of rt eye has hx of macular degeneration , finger confrontation test was non conclusive -has blurred vision on later gaze - mentions that is chronic for him ORDERED FOR STAT CT HEAD WITHOUT CONTRAST 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 Neurology Dr Sawyer updated regarding event cont to monitor , with control of BP pt will be given IV Solu Medrol , Benadryl , H2 prudecne to allergic reaction to Gadolinium added to allergy list ALLERGIC REACTION TO CONTRAST DYE : Cont IV steroid , Benadryl no hypoxia noted at present monitor VISUAL CHANGE ; sudden onset /associated with Hypertensive urgency had CT head , MRI of brain , MRA yesterday -was negative for aneurysm , ordered for stat CT head with out contrast to r/o ICH hold aspirin , Plavix till CT head result MRA OF NECK STAT RAD REPORT : NO FOCAL STENOSIS , OCCLUSION OR DISSECTION maintain SBP < 160 ophthalmology eval in Am updated Neurology
[2016-11-25] MEDS ORDERED: MAGNEVIST IV PRN (02:45)
[2016-11-25] MEDS: FAMOTIDINE IV INJ 20 MG in DEXTROSE 5% 100ML 100 ML IV SCH ×2 (03:28→14:24)
[2016-11-25] MEDS: LEVOTHYROXINE 88 MCG TAB PO SCH (06:07)
--- NOTE | 2016-11-25 06:49 | DIAGNOSTIC IMAGING REPORT ---
MRA OF THE NECK WITH AND WITHOUT CONTRAST CLINICAL HISTORY: Posterior circulation transient ischemic attack. COMPARISON STUDY: MRA of the neck September 22, 2004 and carotid ultrasound November 23, 2016 TECHNIQUE: Unenhanced and contrast-enhanced MRA of the neck was performed. Injection of 20 mL of Magnevist IV was performed. Following contrast demonstration, the patient reported difficulty breathing and a burning sensation within his throat. The patient was evaluated for contrast reaction by Dr. Desai. NASCET criteria were utilized to estimate the degree of carotid stenosis. FINDINGS: The bilateral common carotid, internal carotid and vertebral arteries are patent. No stenosis is identified. There is no evidence for dissection by MRA. Major vasculature of the neck is patent. IMPRESSION: Normal MRA of the neck. Electronically signed by: Syd Jeronimo M.D. 11/25/2016 6:48 AM
--- NOTE | 2016-11-25 07:44 | DIAGNOSTIC IMAGING REPORT ---
CT OF THE HEAD WITHOUT CONTRAST CLINICAL HISTORY: Headache. Visual change. Hypertensive urgency. COMPARISON STUDY: Head CT and MRI the brain November 23, 2016. CT DOSE: 614.27 mGy.cm TECHNIQUE: Helical axial images of the head were obtained without IV contrast. Automated exposure control was utilized for the study. FINDINGS: No acute intracranial hemorrhage, midline shift or mass effect is present. Ventricular system is normal. Basilar cisterns are patent. There are no extra-axial collections. Espinal-white differentiation is maintained. There are no findings to suggest acute dural sinus thrombosis or acute territorial infarct. There is mild mucosal thickening of the sinuses. There are no significant calvarial abnormalities. IMPRESSION: No acute intracranial findings. Electronically signed by: Syd Jeronimo M.D. 11/25/2016 7:42 AM
[2016-11-25] MEDS: CEROVITE ADV FORMULA TAB PO SCH (08:04)
[2016-11-25] MEDS: HYDROCHLOROTHIAZIDE 25 MG TAB PO SCH (08:05)
[2016-11-25] MEDS: ROSUVASTATIN CALCIUM 10 MG TAB PO SCH (08:06)
--- NOTE | 2016-11-25 08:41 | ECHOCARDIOGRAM REPORT ---
*NOTICE TO RECEIVING DEMOCRAT AGENCY This information is strictly Confidential and protected under [place] law. [place] law prohibits you from making any further disclosure of this information unless further disclosure is expressly permitted by the written consent of the person to whom it pertains or is authorized by law. A general authorization for the release of medical or other information is not sufficient for this purpose. Hospital accepts no responsibility if the information is made available to any other person, INCLUDING THE PATIENT. Interpretation Summary * Name: CHARLES WOODS Study Date: 11/24/2016 03:22 PM BP: 154/83 mmHg * Patient Location: C.2T\S\S229\S\2 HR: 73 * : 1950 (M/d/yyy) Gender: Male Height: 71 in * Age: 66 yrs Ethnicity: CA Weight: 209 lb * Ordering Physician: Madison Desai * Performed By: Anita Peres * * Reason For Study: CEREBRAL ISCHEMIA/ EMBOLUS * BSA: 2.1 m2 * -- Conclusions -- * Normal LV chamber size with mild concentric LVH, sigmoid appearing septum. * Normal LV systolic function, EF 60-65%. * No segmental left ventricular wall motion abnormalities are noted. * Grade I diastolic dysfunction. * No significant valvular pathology. * Intact interatrial septum. Procedure Details * A complete two-dimensional transthoracic echocardiogram was performed (2D, M-mode, Doppler and color flow Doppler). * A saline contrast injection was performed to assess for cardiac shunting. * The injection was performed through an intravenous line in the right arm. * The attending nurse who injected the saline contrast was YAZ DOWNING RN. * A total of 20 cc of agitated saline was given. * A contrast injection of Definity was performed to improve assessment of LV function. * Contrast was injected into an intravenous site in the right arm. * One vial of Definity ultrasound contrast was diluted in normal saline to a total volume of 10 ml. A total of '2' ml of solution was administered during imaging. * Lot # [id number] of Definity utilized for procedure. * Expiration date 05/09. * The attending nurse who injected the contrast agent was YAZ DOWNING RN. Left Ventricle * The left ventricle is normal in size. * There is mild concentric left ventricular hypertrophy. * The basal septum is thickened and angulated consistent with sigmoid septum. * Ejection Fraction = 60-65%. * Left ventricular systolic function is normal. * No segmental left ventricular wall motion abnormalities are noted. * The left ventricular wall motion is normal at rest. Right Ventricle * The right ventricular cavity size is normal (basal dimension <4.2 cm in right ventricular apical 4-chamber view). * The right ventricular systolic function is normal as assessed by tricuspid annular plane systolic excursion (TAPSE) (normal >1.5 cm). Atria * The left atrial size is normal. * Right atrial size is normal. * The interatrial septum is intact with no evidence for an atrial septal defect. Mitral Valve * The mitral valve is normal in structure and function. Tricuspid Valve * The tricuspid valve is normal in structure and function. Aortic Valve * The aortic valve is normal in structure and function. Pulmonic Valve * The pulmonary valve is not well seen, but the Doppler examination is normal without significant regurgitation or stenosis. Great Vessels * The aortic root and proximal ascending aorta are normal sized. Pericardium/Pleural * There is no pericardial effusion. Left Ventricular Diastolic Function * Grade I diastolic dysfunction, (abnormal relaxation pattern). MMode 2D Measurements and Calculations IVSd 1.7 cm IVSs 1.9 cm LVIDd 4.0 cm LVIDs 2.7 cm LVPWd 1.2 cm LVPWs 2.6 cm IVS/LVPW 1.4 FS 32.6 % EDV(Teich) 70.4 ml ESV(Teich) 27.1 ml EF(Teich) 61.5 % EDV(cubed) 64.4 ml ESV(cubed) 19.8 ml EF(cubed) 69.3 % % IVS thick 16.2 % % LVPW thick 116.6 % LV mass(C)d 217.9 grams LV mass(C)dI 101.4 grams/m\S\2 LV mass(C)s 299.6 grams LV mass(C)sI 139.4 grams/m\S\2 SV(Teich) 43.3 ml SI(Teich) 20.1 ml/m\S\2 SV(cubed) 44.6 ml SI(cubed) 20.8 ml/m\S\2 ACS 1.5 cm LA dimension 4.0 cm asc Aorta Diam 3.6 cm LVOT diam 1.8 cm LVOT area 2.6 cm\S\2 LVAd ap4 32.6 cm\S\2 LVLd ap4 8.1 cm EDV(MOD-sp4) 108.9 ml EDV(sp4-el) 111.4 ml LVAs ap4 17.0 cm\S\2 LVLs ap4 6.5 cm ESV(MOD-sp4) 38.9 ml ESV(sp4-el) 38.0 ml EF(MOD-sp4) 64.3 % EF(sp4-el) 65.9 % LVAd ap2 33.1 cm\S\2 LVLd ap2 8.3 cm EDV(MOD-sp2) 110.8 ml EDV(sp2-el) 112.8 ml LVAs ap2 18.4 cm\S\2 LVLs ap2 7.3 cm ESV(MOD-sp2) 38.7 ml ESV(sp2-el) 39.6 ml EF(MOD-sp2) 65.1 % EF(sp2-el) 64.9 % LVLd %diff 1.9 % EDV(MOD-bp) 110.3 ml LVLs %diff 10.6 % ESV(MOD-bp) 40.2 ml EF(MOD-bp) 63.6 % SV(MOD-sp4) 70.0 ml SI(MOD-sp4) 32.6 ml/m\S\2 SV(MOD-sp2) 72.2 ml SI(MOD-sp2) 33.6 ml/m\S\2 SV(MOD-bp) 70.1 ml SI(MOD-bp) 32.7 ml/m\S\2 SV(sp4-el) 73.3 ml SI(sp4-el) 34.1 ml/m\S\2 SV(sp2-el) 73.2 ml SI(sp2-el) 34.1 ml/m\S\2 Doppler Measurements and Calculations MV E max leti 55.2 cm/sec MV A max leti 80.2 cm/sec MV E/A 0.69 MV dec time 0.28 sec Ao V2 max 135.8 cm/sec Ao max PG 7.4 mmHg Ao max PG (full) 2.5 mmHg HAYDEN(V,A) 2.1 cm\S\2 HAYDEN(V,D) 2.1 cm\S\2 LV V1 max PG 4.9 mmHg LV V1 mean PG 1.8 mmHg LV V1 max 110.4 cm/sec LV V1 mean 59.2 cm/sec LV V1 VTI 19.5 cm SV(LVOT) 51.4 ml SI(LVOT) 23.9 ml/m\S\2 PA V2 max 76.8 cm/sec PA max PG 2.4 mmHg PI end-d leti 121.2 cm/sec TR max leti 208.3 cm/sec
[2016-11-25] MEDS ORDERED: ENALAPRIL MALEATE 10 MG TAB PO SCH (09:00)
--- NOTE | 2016-11-25 09:43 | Progress Note ---
Medicine Progress Note Date & Time of Visit: Nov 25, 2016 at 09:32. Subjective patient seen resting in bed, comfortable states he feels better this morning denies throat/lip swelling, dyspnea, chest pain, headache, dizziness denies any focal neuro symptoms no other symptoms Objective Last 8 Hrs Date Time Temp Pulse Resp B/P Pulse Ox O2 Delivery O2 Flow Rate FiO2 11/25/16 07:54 36.7 18 134/78 94 Nasal Cannula 2.0 11/25/16 04:02 Room Air 11/25/16 03:54 36.6 86 20 138/78 97 Nasal Cannula 3.0 11/25/16 01:38 84 166/90 11/25/16 01:34 100 18 168/98 97 Nasal Cannula 5.0 Physical Exam: General- oriented x 3, not in distress, speaks in sentences with no effort Eyes- EOMI, anicteric ENT- oropharynx clear Neck- supple, no JVD Lungs- clear to auscultation bilaterally Heart-normal rate, regular rhythm; no murmurs Abdomen- normal bowel sounds, soft, nontender Extremities- no pretibial edema, no calf tenderness; peripheral pulses intact Neuro- alert, oriented x 3; PERRL, EOMI; no facial palsy; no dysarthria; motor 5 /5 bilaterally; sensation 100% Skin- warm & dry Assessment & Plan 66 year old male with history of Hypertension, Dyslipidemia, Hypothyroidism presenting with episode of right sided weakness. TRANSIENT ISCHEMIC ATTACK - presented with sudden onset of rt sided weakness, resolved in few minutes - MRI OF BRAIN : 1. No convincing evidence for acute infarct. A 5 mm focus focus of increased signal intensity within the periventricular white matter of the left parietal lobe may reflect a subacute to chronic lacunar infarct. 2. No intracranial masses or pathologic enhancement. MRA Neck: unremarkable Echo: Grade 1 diastolic dysfunction - Plavix added to Aspirin (needs at least 3 months of Plavix with Aspirin) Will need stringent Blood pressure control Possible Cardionet monitoring as outpatient monitor Lipid profile - appreciate Neuro eval UNCONTROLLED HYPERTENSION Enalapril increased to 40mg daily HCTZ continued monitor POSSIBLE GADOLINIUM CONTRAST ALLERGIC REACTION noted to have wheezing, hypotension after MRA given Solumedrol, Benadryl - continue Solumedrol q8h Cetirizine 10mg daily - Hydralazine also given prior to symptoms, thus discontinued HYPERLIPIDEMIA: fasting lipid panel LDL elevated > 100 increased Crestor to 10 mg daily repeat fasting lipid panel in 4 weeks MILD ELEVATION OF TROPONIN : due to hypertensive urgency pt denies of any chest pain , EKG no ischemic change ECHO * -- Conclusions -- * Normal LV chamber size with mild concentric LVH, sigmoid appearing septum. * Normal LV systolic function, EF 60-65%. * No segmental left ventricular wall motion abnormalities are noted. * Grade I diastolic dysfunction. * No significant valvular pathology. * Intact interatrial septum. HYPOTHYROIDISM ; cont Levothyroxine TSH -wnl FULL CODE DVT PROPHYLAXIS : moderate risk Sub q heparin scd and teds DISPOSITION : pending Current Inpatient Medications: Current Inpatient Medications Medications (Trade) Dose Ordered Sig/Alphonse Route Start Time Stop Time Status Last Admin Dose Admin Miscellaneous Information (Pharmacist Discharge Med Rec Consult) 1 ea UD PRN N/A 11/23/16 18:15 12/23/16 18:14 Acetaminophen (Tylenol Tab) 650 mg Q4H PRN PO 11/23/16 18:15 12/23/16 18:14 11/24/16 15:21 650 MG Al Hydrox/Mg Hydrox/Simethicone (Maalox Max Susp) 15 ml Q4H PRN PO 11/23/16 18:15 12/23/16 18:14 Magnesium Hydroxide (Milk Of Magnesia Susp) 30 ml Q12H PRN PO 11/23/16 18:15 12/23/16 18:14 Zolpidem Tartrate (Ambien Tab) 5 mg HSZ PRN PO 11/23/16 18:15 12/23/16 18:14 Ondansetron HCl (Zofran Inj) 4 mg Q6H PRN IV 11/23/16 18:15 12/23/16 18:14 Nitroglycerin (Nitrostat Tab) 0.4 mg UD PRN SL 11/23/16 18:15 12/23/16 18:14 Aspirin (Ecotrin Tab) 81 mg QAM PO 11/24/16 09:00 12/24/16 08:59 Future Hold 11/24/16 07:33 81 MG Polyethylene (Miralax Powder Packet) 17 gm DAILY PRN PO 11/23/16 18:15 12/23/16 18:14 Amitriptyline HCl (Elavil Tab) 10 mg HS PO 11/23/16 21:00 12/23/16 20:59 1/2/17 22:43 10 MG Folic Acid (Folvite Tab) 1 mg DAILY PO 11/24/16 09:00 12/24/16 08:59 Levothyroxine Sodium (Synthroid Tab) 88 mcg DAILYBB PO 11/24/16 06:00 12/24/16 06:59 11/25/16 06:07 88 MCG Multivitamins/ Minerals (Multivitamin W/ Minerals Tab) 1 tab DAILY PO 11/24/16 09:00 12/24/16 08:59 11/25/16 08:04 1 TAB Miscellaneous Information (Order Awaiting Action) 1 ea QS N/A 11/24/16 08:00 12/24/16 07:59 Hydrochlorothiazide 25 mg 25 mg DAILY PO 11/24/16 09:00 12/24/16 08:59 11/25/16 08:05 25 MG Enalaprilat/ Dextrose (Vasotec IV/D5 25ml) 26 ml @ 100 mls/hr Q6 PRN IV 11/23/16 22:15 12/23/16 22:14 11/25/16 01:29 100 MLS/HR Gadobutrol (Gadavist) 9 mmol UD PRN IV 11/23/16 23:30 11/27/16 23:29 Duloxetine HCl (Cymbalta Cap) 30 mg DAILY@1700 PO 11/24/16 17:00 12/24/16 08:59 11/24/16 17:07 30 MG Clopidogrel Bisulfate (plAVix TAB) 75 mg QAM PO 11/24/16 13:00 12/24/16 12:59 Future Hold 11/24/16 13:32 75 MG Rosuvastatin Calcium (Crestor Tab) 10 mg DAILY PO 11/25/16 09:00 12/25/16 08:59 11/25/16 08:06 10 MG Enalapril Maleate (Vasotec Tab) 40 mg DAILY PO 11/25/16 09:00 12/25/16 08:59 11/25/16 08:05 40 MG Diphenhydramine HCl 25 mg 25 mg Q8H IV 11/25/16 10:00 12/25/16 09:59 Methylprednisolone Sodium Succinate 60 mg/Syringe 0.96 ml @ 1.5 mls/min Q8H IV 11/25/16 10:00 12/25/16 09:59 11/25/16 08:04 1.5 MLS/MIN Famotidine 20 mg/ Dextrose 102 ml @ 200 mls/hr Q12H IV 11/25/16 02:00 12/25/16 01:59 11/25/16 03:28 200 MLS/HR Acetaminophen/ Empty Bag (Ofirmev IV/ Empty Iv Bag 100ml) 65 ml @ 260 mls/hr Q6H PRN IV 11/25/16 01:15 12/25/16 01:14 11/25/16 01:58 260 MLS/HR Gadopentetate Dimeglumine (Magnevist) 20 ml UD PRN IV 11/25/16 02:45 11/29/16 02:44
[2016-11-25] MEDS ORDERED: METHYLPREDNISOLONE IV 60 MG in SYRINGE 0 ML IV SCH (10:00)
[2016-11-25] MEDS ORDERED: CETIRIZINE HCL 10 MG TAB PO ONE (10:00)
[2016-11-25] MEDS ORDERED: DiphenhydrAMINE HCL 50 MG/ML VIAL IV SCH (10:00)
[2016-11-25] MEDS ORDERED: ASPIRIN 81 MG ECTAB PO ONE (13:10)
[2016-11-25] MEDS ORDERED: CLOPIDOGREL BISULFATE 75 MG TAB PO ONE (13:10)
--- NOTE | 2016-11-25 14:07 | OPHTHALMOLOGY CONSULTATION ---
DATE OF CONSULTATION: 11/25/2016 DATE OF CONSULTATION: 11/25/2016. REASON FOR CONSULT: Transient visual changes, right eye. HISTORY OF PRESENT ILLNESS: The patient is a very pleasant 66-year-old gentleman admitted to the hospital 2 days ago with an episode of weakness and numbness on the right side. While in the hospital, he was receiving IV contrast for imaging of the head and had an adverse reaction which consisted of elevated heart rate and shortness of breath. Following this episode, he noted "bubbles" in the vision in his right eye. This symptom is gone today but persisted for a while last evening. He currently feels that his vision is basically back to normal. His past ocular history is significant for macular degeneration. He has not received any treatment for his macular disease aside from vitamin supplementation. To this point, imaging is primarily negative with the exception of a possible old lacunar infarct on the left side. PAST MEDICAL HISTORY: Hypertension, kidney stones, hyperlipidemia, hypothyroidism, osteoarthritis and inflammatory arthritis. SOCIAL HISTORY: The patient is a nonsmoker and rarely drinks alcohol. ALLERGIES: INFLUENZA VACCINE, PENICILLIN, PRAVASTATIN, SIMVASTATIN, MORPHINE, CODEINE, EGG. MEDICATIONS: Amitriptyline, aspirin, Lotensin, Cymbalta, folic acid, levothyroxine, preservation, Crestor and vitamin D. FAMILY HISTORY: The patient reports that his father had macular degeneration which caused him to lose most of his central vision by the time he in his 70s. He also has a history of hypercoagulable disorder, protein S deficiency in the family. Lab studies are notable for a negative sed rate of 3. PHYSICAL EXAMINATION: EYES: Visual acuity as measured with a near card was 20/30 in the right eye and 20/25 in the left eye. Pupils were equal and reactive without an afferent pupillary defect. Motility examination was normal. Confrontation visual cordova were normal. Pen light examination revealed normal anterior segments with clear corneas, deep and quiet anterior chambers, mild nuclear sclerosis, clear conjunctivae and white sclerae. The lids were also normal. Funduscopic examination reveals macular drusen predominantly in the right eye. Optic nerves had normal color with no swelling. There was a small dot blot hemorrhage in the retinal periphery of the left eye. The exam was otherwise unremarkable. IMPRESSION: At this point Mr. Sanchez has a stable and unremarkable eye exam with the exception of his mild cataracts and macular degeneration. These are chronic conditions and would not explain his brief visual episode last night. He may have been having some mild hypoxia which triggered this visual phenomena. I would not recommend any further treatment. However, he is due for an outpatient exam and so I have recommended having him call our office upon discharge for a more thorough evaluation of his chronic conditions. Please call [phone] with questions. ILDA
--- NOTE | 2016-11-25 14:46 | Neurology Progress Notes ---
Neurology Progress Note Date of Service Nov 25, 2016. Sasha Zavala is a 66 year old male with past medical hx of HTN , hyperlipidemia , hypothyroidism who was seen in the ED for right sided weakness and numbness. He stated that his right arm and foot were clumsy and then had numbness and tingling and felt nausea. He has a history of headaches and was dizzy and light headed, confused. Today when walking into the room he had just reported some right facial numbness which is still present. denies CP, SOB, abdominal pain, weakness, numbness or tingling in right arm or leg. He has been up walking around and has not had a problem. Ophthalmology was in the room prior to the occurrence and he states the fluid ran down his face and that is when the numbness started. His eyes are currently still dilated. He also states he had a reaction to the MRI dye and felt like he couldn't breath he is back now to baseline. Objective Date Time Temp Pulse Resp B/P Pulse Ox O2 Delivery O2 Flow Rate FiO2 11/25/16 12:00 Room Air 11/25/16 11:42 36.6 99 20 146/90 91 Room Air 11/25/16 08:00 Room Air 11/25/16 07:54 36.7 18 134/78 94 Nasal Cannula 2.0 11/25/16 04:02 Room Air 11/25/16 03:54 36.6 86 20 138/78 97 Nasal Cannula 3.0 11/25/16 01:38 84 166/90 11/25/16 01:34 100 18 168/98 97 Nasal Cannula 5.0 11/25/16 01:19 81 20 178/99 97 Non-Rebreather 15.0 11/25/16 01:04 82 20 184/107 99 Nasal Cannula 6.0 11/25/16 00:02 Room Air 11/24/16 23:38 36.9 69 18 194/112 99 Room Air 11/24/16 20:04 Room Air 11/24/16 19:28 36.7 69 22 157/108 94 Room Air 154/101 11/24/16 16:38 36.7 68 18 159/95 96 Room Air 11/24/16 16:00 96 Room Air ESR 3 and WBC in normal range Imaging: CT head - no acute findings repeat done to day MRA neck with and without no acute findings Exam: Physical Exam: Constitutional: appearance nourished, healthy and normal Ears, Nose, Mouth and Throat: mucous membranes moist, no injection and skin normal, eyes normal Cardiovascular: normal S-1 and S-2 and regular rate and rhythm Respiratory: clear to auscultation (CTA) and no rales, rhonchi or wheeze Musculoskeletal: no peripheral edema and good distal pulses Skin: no stigmata of neurocutaneous disease noted and normal and intact Eyes: extraocular muscles intact (EOMI) and pupils equal, round and reactive to light (PERRL), pupils are 4mm NEUROLOGIC EXAMINATION: Mental status: Alert and interactive Oriented to full date and location Oriented to person Speech fluent with no evidence of aphasia Cranial Nerves eye brow raise and smile symmetric, tongue midline Sensory: decreased sensation right side of face Coordination: finger to nose without bi pass or tremor Gait/Stance: lying in bed Motor: Negative for pronator drift of out stretched arms with eyes closed. Strength: biceps triceps hand congressional representative intrinsics 5/5 bilaterally hip flex plantar flex ext bilaterally 5/5 Current Inpatient Medications Medications (Trade) Dose Ordered Sig/Alphonse Route Start Time Stop Time Status Last Admin Dose Admin Miscellaneous Information (Pharmacist Discharge Med Rec Consult) 1 ea UD PRN N/A 11/23/16 18:15 12/23/16 18:14 Acetaminophen (Tylenol Tab) 650 mg Q4H PRN PO 11/23/16 18:15 12/23/16 18:14 11/24/16 15:21 650 MG Al Hydrox/Mg Hydrox/Simethicone (Maalox Max Susp) 15 ml Q4H PRN PO 11/23/16 18:15 12/23/16 18:14 Magnesium Hydroxide (Milk Of Magnesia Susp) 30 ml Q12H PRN PO 11/23/16 18:15 12/23/16 18:14 Zolpidem Tartrate (Ambien Tab) 5 mg HSZ PRN PO 11/23/16 18:15 12/23/16 18:14 Ondansetron HCl (Zofran Inj) 4 mg Q6H PRN IV 11/23/16 18:15 12/23/16 18:14 Nitroglycerin (Nitrostat Tab) 0.4 mg UD PRN SL 11/23/16 18:15 12/23/16 18:14 Polyethylene (Miralax Powder Packet) 17 gm DAILY PRN PO 11/23/16 18:15 12/23/16 18:14 Amitriptyline HCl (Elavil Tab) 10 mg HS PO 11/23/16 21:00 12/23/16 20:59 11/24/16 22:43 10 MG Folic Acid (Folvite Tab) 1 mg DAILY PO 11/24/16 09:00 12/24/16 08:59 Levothyroxine Sodium (Synthroid Tab) 88 mcg DAILYBB PO 11/24/16 06:00 12/24/16 06:59 11/25/16 06:07 88 MCG Multivitamins/ Minerals (Multivitamin W/ Minerals Tab) 1 tab DAILY PO 11/24/16 09:00 12/24/16 08:59 11/25/16 08:04 1 TAB Miscellaneous Information (Order Awaiting Action) 1 ea QS N/A 11/24/16 08:00 12/24/16 07:59 Hydrochlorothiazide 25 mg 25 mg DAILY PO 11/24/16 09:00 12/24/16 08:59 11/25/16 08:05 25 MG Enalaprilat/ Dextrose (Vasotec IV/D5 25ml) 26 ml @ 100 mls/hr Q6 PRN IV 11/23/16 22:15 12/23/16 22:14 11/25/16 01:29 100 MLS/HR Gadobutrol (Gadavist) 9 mmol UD PRN IV 11/23/16 23:30 11/27/16 23:29 Duloxetine HCl (Cymbalta Cap) 30 mg DAILY@1700 PO 11/24/16 17:00 12/24/16 08:59 11/24/16 17:07 30 MG Rosuvastatin Calcium (Crestor Tab) 10 mg DAILY PO 11/25/16 09:00 12/25/16 08:59 11/25/16 08:06 10 MG Enalapril Maleate 40 mg 40 mg DAILY PO 11/25/16 09:00 12/25/16 08:59 11/25/16 08:05 40 MG Famotidine 20 mg/ Dextrose 102 ml @ 200 mls/hr Q12H IV 11/25/16 02:00 12/25/16 01:59 11/25/16 14:24 200 MLS/HR Acetaminophen/ Empty Bag (Ofirmev IV/ Empty Iv Bag 100ml) 65 ml @ 260 mls/hr Q6H PRN IV 11/25/16 01:15 12/25/16 01:14 11/25/16 01:58 260 MLS/HR Gadopentetate Dimeglumine (Magnevist) 20 ml UD PRN IV 11/25/16 02:45 11/29/16 02:44 Cetirizine HCl (zyrTEC TAB) 10 mg QAM PO 11/26/16 09:00 12/26/16 08:59 Prednisone (PredniSONE TAB) 60 mg DAILY PO 11/26/16 09:00 12/26/16 08:59 Aspirin (Ecotrin Tab) 81 mg QAM PO 11/26/16 09:00 12/26/16 08:59 Clopidogrel Bisulfate (plAVix TAB) 75 mg QAM PO 11/26/16 09:00 12/26/16 08:59 Impression 66 year old male s/p TIA symptoms and new right facial numbness Plan 1. continue plavix 75 mg and aspirin 81 mg x 3 months and then stop aspirin and continue plavix for a lifetime 2. need strict control of cholesterol below 70 3. permissive hypertension would not allow to elevate > 180/100 4. reaction to MRI dye would note on allergy list. 5. would reduce caffeine use 6. once past the initial event would continue blood pressure control 7. EEG completed but not yet resulted. I have seen and discussed above patient with Dr Radha Sawyer, neurology Pt seen and examined. Discussed events of last pm. Pt felt nausea prior to MRI, post MRI, SOB, throat burning. Then visual phenomenon R eye only like a "video game", white, migrating back and forth. it is unclear the duration. No intensification of headache after, unremark CT head, mra neck, esr. Today felt as if a hair on R side of face. Exam is normal with the exception that temperature felt colder on R V3 which does not correlate with his complaint. Continue to monitor, with asa, plavix. unclear nature of vis phenomenon, ? migrainous. Goal LDL less than 70. Cardionet monitor as outpt. If the pt was to have objective abnormality or more than just minor new sx would rec repeating MRI brain noncontrast. RE bump in creatinine post MRI, will discuss with hospitalist team. AGUEDA Sawyer MD
[2016-11-25] MEDS: DULOXETINE (CYMBALTA) 30 MG CAP PO SCH (16:54)
[2016-11-25] MEDS: SODIUM CHLORIDE 0.9% 1000ML 1,000 ML IV SCH (18:42)
[2016-11-25 19:12] LABS: HEMATOCRIT 40.5 % (42-52); MEAN CELL VOLUME 94.6 fL (80-100); MEAN CORPUSCULAR HEMOGLOBIN 32.7 pg (25-34); MEAN CORPUSCULAR HGB CONC 34.6 g/dl (32-36); MEAN PLATELET VOLUME 11.8 fL (7.4-10.4); PLATELET COUNT 209 K/uL (130-400); RED BLOOD COUNT 4.28 M/uL (4.7-6.1)
[2016-11-25 19:14] LABS: BASO ABS # 0.01 K/uL (0-0.2); COMPLETE YES; IG% 0.3 %; LYMPH % 4.9 %; LYMPH ABS # 1.06 K/uL (1.2-3.4); MONO % 1.5 %; NEUT % 93.3 %
[2016-11-25 19:21] LABS: BUN/CREATININE RATIO 14.5 (10-20); CALCIUM 9.2 mg/dl (8.5-10.1); MAGNESIUM 2.4 mg/dl (1.8-2.4)
[2016-11-25 20:05] LABS: CREATININE 1.5 mg/dl (0.60-1.40)
[2016-11-25 20:10] LABS: POTASSIUM 4.4 mmol/L (3.5-5.1)
[2016-11-25] MEDS: AMITRIPTYLINE HCL 10 MG TAB PO SCH (22:20)
[2016-11-26] VITALS (8 sets, daily range): BP systolic 122–167; BP diastolic 69–93; PULSE 71–155; TEMP 36.5–36.9; O2SAT 93–97
[2016-11-26] MEDS ORDERED: METOPROLOL TARTRATE 1 MG/ML VIAL IV ONE ×2 (01:00→05:30)
[2016-11-26] MEDS: SODIUM CHLORIDE 0.9% 1000ML 1,000 ML IV SCH ×3 (02:49→20:08)
[2016-11-26] MEDS: FAMOTIDINE IV INJ 20 MG in DEXTROSE 5% 100ML 100 ML IV SCH ×2 (02:49→14:32)
[2016-11-26] MEDS: LEVOTHYROXINE 88 MCG TAB PO SCH ×2 (05:50→06:11)
[2016-11-26] MEDS: CETIRIZINE HCL 10 MG TAB PO SCH (08:06)
[2016-11-26] MEDS: CEROVITE ADV FORMULA TAB PO SCH (08:06)
[2016-11-26] MEDS: CLOPIDOGREL BISULFATE 75 MG TAB PO SCH (08:07)
[2016-11-26] MEDS: ASPIRIN 81 MG ECTAB PO SCH (08:07)
[2016-11-26] MEDS: ROSUVASTATIN CALCIUM 10 MG TAB PO SCH (08:08)
--- NOTE | 2016-11-26 08:23 | Progress Note ---
Medicine Progress Note Date & Time of Visit: Nov 26, 2016 at 08:16. Subjective patient noted to have frequent SVT episodes overnight, asymptomatic, sleeping this AM, seen sitting up in bed states he has frequent episodes of dizziness while standing, lasting few seconds no chest pain, dyspnea, palpitations denies focal weakness/numbness, right face symptoms and visual changes resolving no other symptoms Objective Last 8 Hrs Date Time Temp Pulse Resp B/P Pulse Ox O2 Delivery O2 Flow Rate FiO2 11/26/16 07:56 36.5 79 20 148/75 94 Room Air 11/26/16 06:15 150 149/79 11/26/16 05:18 155 11/26/16 04:02 Room Air 11/26/16 03:45 36.9 100 17 122/69 94 Room Air 11/26/16 00:52 146 Physical Exam: General- oriented x 3, not in distress, speaks in sentences with no effort Eyes- anicteric Neck-no JVD Lungs- clear to auscultation bilaterally Heart-normal rate, regular rhythm; no murmurs Abdomen- normal bowel sounds, soft, nontender Extremities- no pretibial edema, no calf tenderness; peripheral pulses intact Neuro- alert, oriented x 3; PERRL, EOMI; no facial palsy; no dysarthria; motor 5 /5 bilaterally; sensation 100% Skin- warm & dry Laboratory Results: Last 24 Hours Test 11/25/16 18:42 11/26/16 07:32 White Blood Count 21.60 K/uL Red Blood Count 4.28 M/uL Hemoglobin 14.0 g/dL Hematocrit 40.5 % Mean Corpuscular Volume 94.6 fL Mean Corpuscular Hemoglobin 32.7 pg Mean Corpuscular Hemoglobin Concent 34.6 g/dl Platelet Count 209 K/uL Mean Platelet Volume 11.8 fL Neutrophils (%) (Auto) 93.3 % Lymphocytes (%) (Auto) 4.9 % Monocytes (%) (Auto) 1.5 % Eosinophils (%) (Auto) 0.0 % Basophils (%) (Auto) 0.0 % Neutrophils # (Auto) 20.14 K/uL Lymphocytes # (Auto) 1.06 K/uL Monocytes # (Auto) 0.33 K/uL Eosinophils # (Auto) 0.00 K/uL Basophils # (Auto) 0.01 K/uL RDW Standard Deviation 44.3 fL RDW Coefficient of Variation 12.8 % Immature Granulocyte % (Auto) 0.3 % Immature Granulocyte # (Auto) 0.06 K/uL Red Blood Cell Morphology Unremarkable Sodium Level 142 mmol/L Potassium Level 4.4 mmol/L Chloride Level 107 mmol/L Carbon Dioxide Level 24 mmol/L Anion Gap 11.0 mmol/L Blood Urea Nitrogen 22 mg/dl Creatinine 1.50 mg/dl Est Creatinine Clear Calc Drug Dose 56.3 ml/min Estimated GFR () 55.4 Estimated GFR (Non- 47.8 BUN/Creatinine Ratio 14.5 Random Glucose 164 mg/dl Calcium Level 9.2 mg/dl Magnesium Level 2.4 mg/dl Assessment & Plan 66 year old male with history of Hypertension, Dyslipidemia, Hypothyroidism presenting with episode of right sided weakness. TRANSIENT ISCHEMIC ATTACK - presented with sudden onset of rt sided weakness, resolved in few minutes - MRI OF BRAIN : 1. No convincing evidence for acute infarct. A 5 mm focus focus of increased signal intensity within the periventricular white matter of the left parietal lobe may reflect a subacute to chronic lacunar infarct. 2. No intracranial masses or pathologic enhancement. MRA Neck: unremarkable Echo: Grade 1 diastolic dysfunction - Plavix added to Aspirin (needs at least 3 months of Plavix with Aspirin) Will need good Blood pressure control as outpatient Possible Cardionet monitoring as outpatient monitor Lipid profile - appreciate Neuro eval SVT EPISODES - asymptomatic - monitor electrolytes - will consult Cardiology ACUTE RENAL FAILURE - Pre-renal etiology, with contrast nephropathy? - IV fluids started - repeat crea today - usual ACEI and HCTZ held today UNCONTROLLED HYPERTENSION - usual ACEI and HCTZ held today due to acute renal failure - may need B prudence for SVTs VISUAL SYMPTOMS - evaluated by Ophthalmology - monitor for now and ff up as outpatient POSSIBLE GADOLINIUM CONTRAST ALLERGIC REACTION noted to have wheezing, hypotension after MRA given Solumedrol, Benadryl - Solumedrol changed to Prednisone taper Cetirizine 10mg daily - Hydralazine also given prior to symptoms, thus discontinued HYPERLIPIDEMIA: fasting lipid panel LDL elevated > 100 increased Crestor to 10 mg daily repeat fasting lipid panel in 4 weeks MILD ELEVATION OF TROPONIN : due to hypertensive urgency pt denies of any chest pain , EKG no ischemic change ECHO * -- Conclusions -- * Normal LV chamber size with mild concentric LVH, sigmoid appearing septum. * Normal LV systolic function, EF 60-65%. * No segmental left ventricular wall motion abnormalities are noted. * Grade I diastolic dysfunction. * No significant valvular pathology. * Intact interatrial septum. HYPOTHYROIDISM ; cont Levothyroxine TSH -wnl FULL CODE DVT PROPHYLAXIS : moderate risk Sub q heparin scd and teds DISPOSITION : pending Current Inpatient Medications: Current Inpatient Medications Medications (Trade) Dose Ordered Sig/Alphonse Route Start Time Stop Time Status Last Admin Dose Admin Miscellaneous Information (Pharmacist Discharge Med Rec Consult) 1 ea UD PRN N/A 11/23/16 18:15 12/23/16 18:14 Acetaminophen (Tylenol Tab) 650 mg Q4H PRN PO 11/23/16 18:15 12/23/16 18:14 11/24/16 15:21 650 MG Al Hydrox/Mg Hydrox/Simethicone (Maalox Max Susp) 15 ml Q4H PRN PO 11/23/16 18:15 12/23/16 18:14 Magnesium Hydroxide (Milk Of Magnesia Susp) 30 ml Q12H PRN PO 11/23/16 18:15 12/23/16 18:14 Zolpidem Tartrate (Ambien Tab) 5 mg HSZ PRN PO 11/23/16 18:15 12/23/16 18:14 Ondansetron HCl (Zofran Inj) 4 mg Q6H PRN IV 11/23/16 18:15 12/23/16 18:14 Nitroglycerin (Nitrostat Tab) 0.4 mg UD PRN SL 11/23/16 18:15 12/23/16 18:14 Polyethylene (Miralax Powder Packet) 17 gm DAILY PRN PO 11/23/16 18:15 12/23/16 18:14 Amitriptyline HCl (Elavil Tab) 10 mg HS PO 11/23/16 21:00 12/23/16 20:59 11/25/16 22:20 10 MG Folic Acid (Folvite Tab) 1 mg DAILY PO 11/24/16 09:00 12/24/16 08:59 Levothyroxine Sodium (Synthroid Tab) 88 mcg DAILYBB PO 11/24/16 06:00 12/24/16 06:59 11/26/16 06:11 88 MCG Multivitamins/ Minerals (Multivitamin W/ Minerals Tab) 1 tab DAILY PO 11/24/16 09:00 12/24/16 08:59 11/26/16 08:06 1 TAB Miscellaneous Information (Order Awaiting Action) 1 ea QS N/A 11/24/16 08:00 12/24/16 07:59 Gadobutrol (Gadavist) 9 mmol UD PRN IV 11/23/16 23:30 11/27/16 23:29 Duloxetine HCl (Cymbalta Cap) 30 mg DAILY@1700 PO 11/24/16 17:00 12/24/16 08:59 11/25/16 16:54 30 MG Rosuvastatin Calcium 10 mg 10 mg DAILY PO 11/25/16 09:00 12/25/16 08:59 11/26/16 08:08 10 MG Famotidine 20 mg/ Dextrose 102 ml @ 200 mls/hr Q12H IV 11/25/16 02:00 12/25/16 01:59 11/26/16 02:49 200 MLS/HR Acetaminophen/ Empty Bag (Ofirmev IV/ Empty Iv Bag 100ml) 65 ml @ 260 mls/hr Q6H PRN IV 11/25/16 01:15 12/25/16 01:14 11/25/16 01:58 260 MLS/HR Gadopentetate Dimeglumine (Magnevist) 20 ml UD PRN IV 11/25/16 02:45 11/29/16 02:44 Cetirizine HCl (zyrTEC TAB) 10 mg QAM PO 11/26/16 09:00 12/26/16 08:59 11/26/16 08:06 10 MG Aspirin (Ecotrin Tab) 81 mg QAM PO 11/26/16 09:00 12/26/16 08:59 11/26/16 08:07 81 MG Clopidogrel Bisulfate 75 mg 75 mg QAM PO 11/26/16 09:00 12/26/16 08:59 11/26/16 08:07 75 MG Sodium Chloride (Nss 1000ml) 1,000 ml @ 125 mls/hr Q8H IV 11/25/16 18:30 12/25/16 18:29 11/26/16 02:49 125 MLS/HR Prednisone (PredniSONE TAB) 40 mg DAILY PO 11/26/16 09:00 12/26/16 08:59 UNV
[2016-11-26 08:58] LABS: HEMATOCRIT 37.8 % (42-52); MEAN CORPUSCULAR HEMOGLOBIN 32.4 pg (25-34); MEAN CORPUSCULAR HGB CONC 34.1 g/dl (32-36); MEAN PLATELET VOLUME 11.3 fL (7.4-10.4); PLATELET COUNT 183 K/uL (130-400); RED BLOOD COUNT 3.98 M/uL (4.7-6.1); WHITE BLOOD COUNT 22.35 K/uL (4.8-10.8)
[2016-11-26] MEDS ORDERED: ENALAPRIL MALEATE 10 MG TAB PO SCH (09:00)
[2016-11-26 09:20] LABS: BASO ABS # 0.01 K/uL (0-0.2); COMPLETE YES; IG% 0.3 %; LYMPH ABS # 1.12 K/uL (1.2-3.4); MONO % 2.2 %; NEUT % 92.5 %
[2016-11-26 09:36] LABS: CALCIUM 9.3 mg/dl (8.5-10.1); CREATININE 1.2 mg/dl (0.60-1.40); MAGNESIUM 2.4 mg/dl (1.8-2.4); POTASSIUM 4.1 mmol/L (3.5-5.1)
[2016-11-26] MEDS ORDERED: METOPROLOL SUCC 25MG EXT REL TAB PO ONE (09:37)
--- NOTE | 2016-11-26 13:07 | CARDIOLOGY CONSULTATION ---
DATE OF CONSULTATION: 11/26/2016 CONSULTATION REQUESTED BY: Dr. Covington. REASON FOR CONSULTATION: Paroxysmal supraventricular tachycardia. HISTORY OF PRESENT ILLNESS: Mr. Sanchez is a very pleasant 66-year-old gentleman who presented to [facility] Emergency Department on 11/23/2016 with a complaint of transient right-sided weakness and nausea. The patient states he was in his normal state of health and walking around his bedroom when he suddenly felt his right leg starting to become very weak and felt as though it was slipping. He then sat down in the bed and his right arm became very heavy and he was unable to move it. This was associated with some significant nausea, dizziness and lightheadedness. He was also a little confused at that time and his brought him into the Emergency Department. ____ of symptoms only lasted for approximately 5 minutes and then completely resolved. He did not experience any cardiac complaints with that specifically denied any chest pain, shortness of breath, palpitations or syncope. Upon arrival in the ED, he was in normal sinus rhythm with a significantly elevated blood pressure reportedly at 207/157. He was treated for a TIA and admitted to telemetry. Early in the a.m. of 11/25/2016, the patient had an episode of sustained SVT while asleep with rates up to 200. It broke on its own. It was unable to be captured on 12-lead EKG. The patient then had multiple other ____ nonsustained throughout the rest of the night and morning and cardiology was consulted. He states that during these episodes he was completely asymptomatic. He had no recurrences of lightheadedness or right-sided weakness that brought him into the hospital and he denied any palpitations. PAST SURGICAL HISTORY: 1. Spinal fusion surgery. 2. Rotator cuff repair. 3. Transurethral prostatectomy. 4. Colonoscopy. 5. Upper endoscopy. MEDICAL ILLNESSES: 1. Seronegative rheumatoid arthritis. 2. Hypertension. 3. Dyslipidemia. 4. Hypothyroidism. 5. History of malignant melanoma. FAMILY HISTORY: Denies any premature coronary artery disease or sudden cardiac . SOCIAL HISTORY: The patient denies any tobacco use. Drinks very rare alcohol. Denies any recreational drug use. He is and lives at home with his . He has 2 children who are grown and in good health. 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 He does not exercise on a regular basis. The patient states that he snores very loudly at night. He does not know if he has ever had any episodes of apnea. He states he is very tired during the day, requiring frequent naps. REVIEW OF SYSTEMS: As per HPI, all other review of systems reviewed and negative at this time. ALLERGIES: 1. FLU VACCINE. 2. PNEUMOCOCCAL VACCINE. 3. EGG. 4. CODEINE. 5. ENSURE. 6. ETHANOL. 7. MORPHINE. 8. PRAVACHOL. 9. SIMVASTATIN. 10. CERIVASTATIN SODIUM. MEDICATIONS AN OUTPATIENT: 1. Aspirin 81 mg daily. 2. Crestor 5 mg daily. 3. Amitriptyline at bedtime. 4. Benazepril 40 mg daily. 5. Levoxyl daily. 6. Methotrexate. 7. Omeprazole daily. PHYSICAL EXAMINATION: VITAL SIGNS: Temperature 36.5, pulse 79, respiratory rate 12, blood pressure 167/93. GENERAL: Awake, alert, oriented x3, in no acute distress. HEENT: Normocephalic, atraumatic. Pupils are equal, round, and reactive to light and accommodation. Extraocular muscles intact. Anicteric sclerae. Moist mucous membranes. NECK: No JVD, no bruit. CARDIOVASCULAR: Regular. Positive S4. Normal S1 and S2, no S3. No murmurs or rubs. PULMONARY: Clear to auscultation bilaterally. No rales, rhonchi, or wheezing. ABDOMEN: Bowel sounds x4, soft. No rebound, guarding, tenderness. No organomegaly. EXTREMITIES: No clubbing, cyanosis or edema. +2 pedal pulses bilaterally. SKIN: Warm and dry. TEST RESULTS: A 12-lead EKG performed in the Emergency Department independently reviewed at this time shows normal sinus rhythm at 68 beats per minute, LVH, no signs of active ischemia. Review of telemetry monitoring shows approximately 3-minute run of supraventricular tachycardia, likely AV susan reentry tachycardia. A 2D echocardiogram was read as normal LV chamber size with mild concentric LVH, sigmoid appearing septum, normal LV systolic function, EF 60-65%, no segmental wall motion abnormalities were noted, grade 1 diastolic dysfunction, no significant valvular pathology, and intact interatrial septum. IMPRESSION: 1. Paroxysmal supraventricular tachycardia. 2. Transient ischemic attack, possibly secondary to #1. 3. Very high likelihood of obstructive sleep apnea. 4. Hypertension. RECOMMENDATIONS: It was my pleasure to see Mr. Sanchez in consultation today. The pathophysiology and treatment options for SVT were discussed with the patient at great lengths. He was counseled that the most likely cause is obstructive sleep apnea. So at this time, we will perform an inpatient nocturnal pulse oximetry. He will also be started on metoprolol to help reduce recurrences of his SVT. I will restart his benazepril for further blood pressure control. He should be maintained on aspirin. He has been added Plavix as well for a possible TIA and we will monitor him for another 24 hours. Thank you very much for allowing me to participate in the care of your patient.
--- NOTE | 2016-11-26 14:58 | Neurology Progress Notes ---
Neurology Progress Note Date of Service Nov 26, 2016. Sasha Zavala is a 66 year old male with past medical hx of HTN , hyperlipidemia , hypothyroidism who was seen in the ED for right sided weakness and numbness. He stated that his right arm and foot were clumsy and then had numbness and tingling and felt nausea. He has a history of headaches and was dizzy and light headed, confused. Cardiology has been following and an event was recorded overnight. He is currently on recording monitor. Tonight they are planning on a overnight pulse ox to record O2 level while sleeping suspect sleep apnea. He has had no further events but still does have the odd feeling on the right side of his face but no longer has the numbness or tingling in his right arm or leg. denies headache, CP , SOB, abdominal pain, weakness, right sided numbness tingling, N, V. Objective Date Time Temp Pulse Resp B/P Pulse Ox O2 Delivery O2 Flow Rate FiO2 11/26/16 12:00 Room Air 11/26/16 12:00 36.5 79 20 167/93 94 Room Air 11/26/16 08:00 Room Air 11/26/16 07:56 36.5 79 20 148/75 94 Room Air 11/26/16 06:15 150 149/79 11/26/16 05:18 155 11/26/16 04:02 Room Air 11/26/16 03:45 36.9 100 17 122/69 94 Room Air 11/26/16 00:52 146 11/26/16 00:02 Room Air 11/25/16 23:56 36.3 89 17 114/65 92 Room Air 11/25/16 20:19 36.8 89 18 127/70 91 Room Air 11/25/16 20:01 Room Air 11/25/16 16:00 Room Air 11/25/16 15:32 36.5 97 20 130/66 90 Room Air Last 24 Hours Test 11/25/16 18:42 11/26/16 08:45 White Blood Count 21.60 K/uL 22.35 K/uL Red Blood Count 4.28 M/uL 3.98 M/uL Hemoglobin 14.0 g/dL 12.9 g/dL Hematocrit 40.5 % 37.8 % Mean Corpuscular Volume 94.6 fL 95.0 fL Mean Corpuscular Hemoglobin 32.7 pg 32.4 pg Mean Corpuscular Hemoglobin Concent 34.6 g/dl 34.1 g/dl Platelet Count 209 K/uL 183 K/uL Mean Platelet Volume 11.8 fL 11.3 fL Neutrophils (%) (Auto) 93.3 % 92.5 % Lymphocytes (%) (Auto) 4.9 % 5.0 % Monocytes (%) (Auto) 1.5 % 2.2 % Eosinophils (%) (Auto) 0.0 % 0.0 % Basophils (%) (Auto) 0.0 % 0.0 % Neutrophils # (Auto) 20.14 K/uL 20.66 K/uL Lymphocytes # (Auto) 1.06 K/uL 1.12 K/uL Monocytes # (Auto) 0.33 K/uL 0.49 K/uL Eosinophils # (Auto) 0.00 K/uL 0.00 K/uL Basophils # (Auto) 0.01 K/uL 0.01 K/uL RDW Standard Deviation 44.3 fL 44.5 fL RDW Coefficient of Variation 12.8 % 12.8 % Immature Granulocyte % (Auto) 0.3 % 0.3 % Immature Granulocyte # (Auto) 0.06 K/uL 0.07 K/uL Red Blood Cell Morphology Unremarkable Unremarkable Sodium Level 142 mmol/L 141 mmol/L Potassium Level 4.4 mmol/L 4.1 mmol/L Chloride Level 107 mmol/L 108 mmol/L Carbon Dioxide Level 24 mmol/L 24 mmol/L Anion Gap 11.0 mmol/L 9.0 mmol/L Blood Urea Nitrogen 22 mg/dl 26 mg/dl Creatinine 1.50 mg/dl 1.20 mg/dl Est Creatinine Clear Calc Drug Dose 56.3 ml/min 70.6 ml/min Estimated GFR () 55.4 72.6 Estimated GFR (Non- 47.8 62.6 BUN/Creatinine Ratio 14.5 22.0 Random Glucose 164 mg/dl 176 mg/dl Calcium Level 9.2 mg/dl 9.3 mg/dl Magnesium Level 2.4 mg/dl 2.4 mg/dl Imaging: no new imaging Exam: Physical Exam: Constitutional: appearance nourished, healthy and normal Ears, Nose, Mouth and Throat: mucous membranes moist, no injection and skin normal, eyes normal Cardiovascular: normal S-1 and S-2 and regular rate and rhythm Respiratory: clear to auscultation (CTA) and no rales, rhonchi or wheeze Musculoskeletal: no peripheral edema Skin: no stigmata of neurocutaneous disease noted and normal and intact Eyes: extraocular muscles intact (EOMI) and pupils equal, round and reactive to light (PERRL) NEUROLOGIC EXAMINATION: Mental status: Alert and interactive Oriented to full date and location Oriented to person Speech fluent with no evidence of aphasia Cranial Nerves smile eye brow raise symmetric, tongue midline Coordination: finger to nose without bi pass or tremor Gait/Stance: sitting up in bed Motor: Negative for pronator drift of out stretched arms with eyes closed. Strength: biceps triceps hand silo tender 5/5 bilaterally hip flex plantar flex ext 5/5 bilaterally Current Inpatient Medications Medications (Trade) Dose Ordered Sig/Alphonse Route Start Time Stop Time Status Last Admin Dose Admin Miscellaneous Information (Pharmacist Discharge Med Rec Consult) 1 ea UD PRN N/A 11/23/16 18:15 12/23/16 18:14 Acetaminophen (Tylenol Tab) 650 mg Q4H PRN PO 11/23/16 18:15 12/23/16 18:14 11/24/16 15:21 650 MG Al Hydrox/Mg Hydrox/Simethicone (Maalox Max Susp) 15 ml Q4H PRN PO 11/23/16 18:15 12/23/16 18:14 Magnesium Hydroxide (Milk Of Magnesia Susp) 30 ml Q12H PRN PO 11/23/16 18:15 12/23/16 18:14 Zolpidem Tartrate (Ambien Tab) 5 mg HSZ PRN PO 11/23/16 18:15 12/23/16 18:14 Ondansetron HCl (Zofran Inj) 4 mg Q6H PRN IV 11/23/16 18:15 12/23/16 18:14 Nitroglycerin (Nitrostat Tab) 0.4 mg UD PRN SL 11/23/16 18:15 12/23/16 18:14 Polyethylene (Miralax Powder Packet) 17 gm DAILY PRN PO 11/23/16 18:15 12/23/16 18:14 Amitriptyline HCl (Elavil Tab) 10 mg HS PO 11/23/16 21:00 12/23/16 20:59 11/25/16 22:20 10 MG Folic Acid (Folvite Tab) 1 mg DAILY PO 11/24/16 09:00 12/24/16 08:59 Levothyroxine Sodium (Synthroid Tab) 88 mcg DAILYBB PO 11/24/16 06:00 12/24/16 06:59 11/26/16 06:11 88 MCG Multivitamins/ Minerals (Multivitamin W/ Minerals Tab) 1 tab DAILY PO 11/24/16 09:00 12/24/16 08:59 11/26/16 08:06 1 TAB Miscellaneous Information (Order Awaiting Action) 1 ea QS N/A 11/24/16 08:00 12/24/16 07:59 Gadobutrol (Gadavist) 9 mmol UD PRN IV 11/23/16 23:30 11/27/16 23:29 Duloxetine HCl (Cymbalta Cap) 30 mg DAILY@1700 PO 11/24/16 17:00 12/24/16 08:59 11/25/16 16:54 30 MG Rosuvastatin Calcium 10 mg 10 mg DAILY PO 11/25/16 09:00 12/25/16 08:59 11/26/16 08:08 10 MG Famotidine 20 mg/ Dextrose 102 ml @ 200 mls/hr Q12H IV 11/25/16 02:00 12/25/16 01:59 11/26/16 14:32 200 MLS/HR Acetaminophen/ Empty Bag (Ofirmev IV/ Empty Iv Bag 100ml) 65 ml @ 260 mls/hr Q6H PRN IV 11/25/16 01:15 12/25/16 01:14 11/25/16 01:58 260 MLS/HR Gadopentetate Dimeglumine (Magnevist) 20 ml UD PRN IV 11/25/16 02:45 11/29/16 02:44 Cetirizine HCl (zyrTEC TAB) 10 mg QAM PO 11/26/16 09:00 12/26/16 08:59 11/26/16 08:06 10 MG Aspirin (Ecotrin Tab) 81 mg QAM PO 11/26/16 09:00 12/26/16 08:59 11/26/16 08:07 81 MG Clopidogrel Bisulfate 75 mg 75 mg QAM PO 11/26/16 09:00 12/26/16 08:59 11/26/16 08:07 75 MG Sodium Chloride (Nss 1000ml) 1,000 ml @ 125 mls/hr Q8H IV 11/25/16 18:30 12/25/16 18:29 11/26/16 10:48 125 MLS/HR Prednisone (PredniSONE TAB) 40 mg DAILY PO 11/26/16 09:00 12/26/16 08:59 11/26/16 09:28 40 MG Metoprolol Succinate (Toprol Xl Tab) 25 mg QAM PO 11/27/16 09:00 12/27/16 08:59 Miscellaneous Information (Order Awaiting Action) 1 ea QS N/A 11/26/16 13:00 12/26/16 12:59 Impression 66 year old male s/p TIA symptoms and new right facial numbness Plan 1. continue plavix 75 mg and aspirin 81 mg x 3 months and then stop aspirin and continue plavix for a lifetime 2. need strict control of cholesterol below 70 3. permissive hypertension would not allow to elevate > 180/100 4. reaction to MRI dye would note on allergy list if a true allergy 5. would reduce caffeine use 6. once past the initial event would continue blood pressure control 7. EEG completed but not yet resulted. 8. cardiac evaluation for any abnormal rhythm or event 9. healthy life style discussed with patient and I have seen and discussed above patient with Dr Radha Sawyer, neurology Pt seen and examined, exam is normal in spite of pt sense of hair on right side of face. Await EEG. Cardionet as outpt to r/o atrial dysrhythmia. AGUEDA Sawyer MD
[2016-11-26] MEDS: DULOXETINE (CYMBALTA) 30 MG CAP PO SCH (17:24)
[2016-11-26] MEDS: AMITRIPTYLINE HCL 10 MG TAB PO SCH (22:07)
[2016-11-27] MEDS: FAMOTIDINE IV INJ 20 MG in DEXTROSE 5% 100ML 100 ML IV SCH ×2 (03:15→13:49)
[2016-11-27] MEDS: SODIUM CHLORIDE 0.9% 1000ML 1,000 ML IV SCH (03:19)
[2016-11-27 03:20] VITALS: BP 155/82; PULSE 66; TEMP 36.5; O2SAT 96
[2016-11-27] MEDS: LEVOTHYROXINE 88 MCG TAB PO SCH (05:29)
[2016-11-27 06:02] LABS: BASO % 0.1 %; BASO ABS # 0.01 K/uL (0-0.2); COMPLETE YES; EOS % 0.1 %; HEMATOCRIT 36.7 % (42-52); IG% 0.6 %; LYMPH ABS # 2.19 K/uL (1.2-3.4); MEAN CELL VOLUME 95.1 fL (80-100); MEAN CORPUSCULAR HEMOGLOBIN 31.6 pg (25-34); MEAN CORPUSCULAR HGB CONC 33.2 g/dl (32-36); MEAN PLATELET VOLUME 11.7 fL (7.4-10.4); MONO % 6.9 %; NEUT % 80.3 %; PLATELET COUNT 178 K/uL (130-400); RED BLOOD COUNT 3.86 M/uL (4.7-6.1); WHITE BLOOD COUNT 18.18 K/uL (4.8-10.8)
[2016-11-27 06:28] LABS: CALCIUM 8.1 mg/dl (8.5-10.1); CREATININE 0.91 mg/dl (0.60-1.40); MAGNESIUM 2.2 mg/dl (1.8-2.4); POTASSIUM 3.7 mmol/L (3.5-5.1)
--- NOTE | 2016-11-27 07:01 | ELECTROENCEPHALOGRAPH REPORT ---
For Dr. Sawyer. CLINICAL DIAGNOSIS: Confusion with right sided weakness. EEG DIAGNOSIS: Essentially normal during wakefulness. DESCRIPTION OF TRACING: This EEG was done as a bedside recording with simultaneous video analysis of patient movement and behavior. The study is of good technical quality. Photic stimulation is the only stimulus parameter utilized. The episodes of early drowsiness are recorded but never sustained and sleep is not seen. Under these conditions, there is evidence for normal background rhythm in the alpha range of up to 9-10 Hz of maximum frequency and 30 microvolts of maximum amplitude. This activity is maximum in posterior head regions and bilaterally symmetrical. Polymorphic mid frequency theta activity is seen over all head regions without clear focal or regional predominance. Anterior head region maximum, bilaterally symmetrical, low voltage fast activity in the beta range is present. At no time during the waking tracing is there evidence for potentially epileptogenic activity in the form of polyspike or spike wave bursts, focal sharp waves or focal spikes. The episodes of drowsiness are accompanied by no important electroencephalographic changes. Photic stimulation provoked some modest driving response in posterior head regions without a photomyogenic and photoparoxysmal component. INTERPRETATION: This EEG is essentially normal during wakefulness without evidence for a focal or generalized encephalopathy and no evidence for potentially epileptogenic activity.
[2016-11-27] MEDS: CETIRIZINE HCL 10 MG TAB PO SCH (08:00)
[2016-11-27] MEDS: CLOPIDOGREL BISULFATE 75 MG TAB PO SCH (08:00)
[2016-11-27] MEDS: ASPIRIN 81 MG ECTAB PO SCH (08:00)
[2016-11-27] MEDS: CEROVITE ADV FORMULA TAB PO SCH (08:00)
[2016-11-27] MEDS ORDERED: SODIUM CHLORIDE 0.45% 1000ML 1,000 ML IV SCH (08:00)
[2016-11-27] MEDS: ROSUVASTATIN CALCIUM 10 MG TAB PO SCH (08:01)
[2016-11-27 08:11] VITALS: BP 161/94; PULSE 71; TEMP 36.8; O2SAT 96
[2016-11-27] MEDS ORDERED: CETIRIZINE HCL 10 MG TAB PO PRN (09:00)
[2016-11-27] MEDS ORDERED: METOPROLOL SUCC 25MG EXT REL TAB PO SCH (09:00)
[2016-11-27] MEDS ORDERED: LISINOPRIL 10 MG TAB PO SCH (09:00)
[2016-11-27] MEDS ORDERED: CHOLECALCIFEROL 1000 INTER.UNIT TAB PO SCH (09:00)
[2016-11-27] MEDS ORDERED: BENAZEPRIL 40 MG PO SCH (09:00)
--- NOTE | 2016-11-27 10:30 | Cardiology Follow-Up ---
Subjective Subjective Date of Service: Nov 27, 2016. Pt evaluation today including: conversation w/ patient, physical exam, chart review, lab review, review of studies, review of inpatient medication list Additional Details: Pt seen and examined, states that he feels great. No tia symptom recurrence. Nocturnal pulse ox performed. Denies cp, sob, palpitations, lightheadedness or dizziness. Tele reviewed: sinus rhythm without arrhythmia or significant ectopy. Review of Systems Respiratory: No cough, No dyspnea at rest, No dyspnea on exertion, No hemoptysis, No problem reported, No see HPI, No shortness of breath, No sputum, No wheezing Cardiac: No PND, No chest pain, No claudication, No edema, No orthopnea, No palpitations, No problem reported, No see HPI Objective Vital Signs Last Vital Signs Documentation Date Time Temp Pulse Resp B/P Pulse Ox O2 Delivery O2 Flow Rate FiO2 11/27/16 08:11 36.8 71 20 161/94 96 Room Air 11/25/16 07:54 2.0 Physical Exam: General Appearance: WD/WN, no apparent distress Eyes: bilateral eyes EOMI, bilateral eyes PERRL, bilateral eyes normal inspection ENT: normal ENT inspection, hearing grossly normal, pharynx normal Neck: supple, no adenopathy, thyroid normal, no JVD, no carotid bruits, trachea midline Respiratory/Chest: chest non-tender, lungs clear, normal breath sounds, no respiratory distress, no accessory muscle use Cardiovascular: regular rate, rhythm, no edema, no JVD, no murmur, + gallop/S4 Abdomen: normal bowel sounds, non tender, soft, no organomegaly Extremities: normal inspection, no pedal edema, no calf tenderness Neurologic/Psychiatric: button breaker II-XII nml as tested, no motor/sensory deficits, alert, normal mood/affect, oriented x 3 Skin: normal color, warm/dry, no rash Lymphatic: no adenopathy Assessment and Plan 1. paroxysmal SVT monisha likely the cause no recurrence with initiation of metoprolol, cont current dose will need outpatient sleep medicine eval, sooner rather than later (my office will arrange) my office will arrange for zio patch x 1 week f/u with me in 1 month, my office will arrange 2. HTN would resume benazapril f/u as outpatient can also add amlodipine if necessary ok to d/c to home
[2016-11-27 13:10] LABS: CALCIUM 8.4 mg/dl (8.5-10.1); POTASSIUM 4.1 mmol/L (3.5-5.1)
[2016-11-27 14:58] VITALS: BP 160/95; PULSE 69; TEMP 36.6; O2SAT 94
--- NOTE | 2016-11-27 15:08 | Neurology Progress Notes ---
Neurology Progress Note Date of Service Nov 27, 2016. Sasha Zavala is a 66 year old male with past medical hx of HTN , hyperlipidemia, hypothyroidism who was seen in the ED for right sided weakness and numbness. He stated that his right arm and foot were clumsy and then had numbness and tingling and felt nausea. He has a history of headaches and was dizzy and light headed, confused. Cardiology has been following and an event was recorded overnight. He is currently on recording monitor. Tonight they are planning on a overnight pulse ox to record O2 level while sleeping suspect sleep apnea. He was told by cardiology it was ok for discharge waiting for primary team to discharge. He has had no further events but still does have the odd feeling on the right side of his face but no longer has the numbness or tingling in his right arm or leg. denies headache, CP, SOB, abdominal pain, weakness, right sided numbness tingling, N, V. Objective Date Time Temp Pulse Resp B/P Pulse Ox O2 Delivery O2 Flow Rate FiO2 11/27/16 12:00 Room Air 11/27/16 08:11 36.8 71 20 161/94 96 Room Air 11/27/16 08:00 Room Air 11/27/16 04:00 Room Air 11/27/16 03:20 36.5 66 18 155/82 96 Room Air 11/26/16 23:59 Room Air 11/26/16 23:22 36.6 81 20 128/74 95 Room Air 11/26/16 20:00 Room Air 11/26/16 19:45 36.5 71 20 157/86 93 Room Air 11/26/16 17:31 36.5 73 20 157/85 97 Room Air 11/26/16 16:00 Room Air Last 24 Hours Test 11/27/16 05:03 11/27/16 12:22 White Blood Count 18.18 K/uL Red Blood Count 3.86 M/uL Hemoglobin 12.2 g/dL Hematocrit 36.7 % Mean Corpuscular Volume 95.1 fL Mean Corpuscular Hemoglobin 31.6 pg Mean Corpuscular Hemoglobin Concent 33.2 g/dl Platelet Count 178 K/uL Mean Platelet Volume 11.7 fL Neutrophils (%) (Auto) 80.3 % Lymphocytes (%) (Auto) 12.0 % Monocytes (%) (Auto) 6.9 % Eosinophils (%) (Auto) 0.1 % Basophils (%) (Auto) 0.1 % Neutrophils # (Auto) 14.61 K/uL Lymphocytes # (Auto) 2.19 K/uL Monocytes # (Auto) 1.26 K/uL Eosinophils # (Auto) 0.01 K/uL Basophils # (Auto) 0.01 K/uL RDW Standard Deviation 44.2 fL RDW Coefficient of Variation 12.8 % Immature Granulocyte % (Auto) 0.6 % Immature Granulocyte # (Auto) 0.10 K/uL Sodium Level 148 mmol/L 146 mmol/L Potassium Level 3.7 mmol/L 4.1 mmol/L Chloride Level 112 mmol/L 109 mmol/L Carbon Dioxide Level 28 mmol/L 27 mmol/L Anion Gap 8.0 mmol/L 10.0 mmol/L Blood Urea Nitrogen 22 mg/dl 18 mg/dl Creatinine 0.91 mg/dl 1.00 mg/dl Est Creatinine Clear Calc Drug Dose 93.7 ml/min 85.3 ml/min Estimated GFR () 101.4 90.5 Estimated GFR (Non- 87.5 78.1 BUN/Creatinine Ratio 24.0 18.0 Random Glucose 94 mg/dl 137 mg/dl Calcium Level 8.1 mg/dl 8.4 mg/dl Magnesium Level 2.2 mg/dl Imaging: : This EEG is essentially normal during wakefulness without evidence for a focal or generalized encephalopathy and no evidence for potentially epileptogenic activity. Exam: Physical Exam: Constitutional appearance nourished, healthy and normal Ears, Nose, Mouth and Throat: mucous membranes moist, no injection and skin normal, eyes normal Cardiovascular: normal S-1 and S-2 and regular rate and rhythm Respiratory: clear to auscultation (CTA) and no rales, rhonchi or wheeze Musculoskeletal: no peripheral edema and good distal pulses Skin: no stigmata of neurocutaneous disease noted and normal and intact Eyes: extraocular muscles intact (EOMI) and pupils equal, round and reactive to light (PERRL) NEUROLOGIC EXAMINATION: Mental status: Alert and interactive Oriented to full date and location Oriented to person Speech fluent with no evidence of aphasia Cranial Nerves facial symmetric Gait/Stance: OOB walking with no difficulty Current Inpatient Medications Medications (Trade) Dose Ordered Sig/Alphonse Route Start Time Stop Time Status Last Admin Dose Admin Miscellaneous Information (Pharmacist Discharge Med Rec Consult) 1 ea UD PRN N/A 11/23/16 18:15 12/23/16 18:14 Acetaminophen (Tylenol Tab) 650 mg Q4H PRN PO 11/23/16 18:15 12/23/16 18:14 11/24/16 15:21 650 MG Al Hydrox/Mg Hydrox/Simethicone (Maalox Max Susp) 15 ml Q4H PRN PO 11/23/16 18:15 12/23/16 18:14 Magnesium Hydroxide (Milk Of Magnesia Susp) 30 ml Q12H PRN PO 11/23/16 18:15 12/23/16 18:14 Zolpidem Tartrate (Ambien Tab) 5 mg HSZ PRN PO 11/23/16 18:15 12/23/16 18:14 Ondansetron HCl (Zofran Inj) 4 mg Q6H PRN IV 11/23/16 18:15 12/23/16 18:14 Nitroglycerin (Nitrostat Tab) 0.4 mg UD PRN SL 11/23/16 18:15 12/23/16 18:14 Polyethylene (Miralax Powder Packet) 17 gm DAILY PRN PO 11/23/16 18:15 12/23/16 18:14 Amitriptyline HCl (Elavil Tab) 10 mg HS PO 11/23/16 21:00 12/23/16 20:59 11/26/16 22:07 10 MG Folic Acid (Folvite Tab) 1 mg DAILY PO 11/24/16 09:00 12/24/16 08:59 Levothyroxine Sodium (Synthroid Tab) 88 mcg DAILYBB PO 11/24/16 06:00 12/24/16 06:59 11/27/16 05:29 88 MCG Multivitamins/ Minerals (Multivitamin W/ Minerals Tab) 1 tab DAILY PO 11/24/16 09:00 12/24/16 08:59 11/27/16 08:00 1 TAB Gadobutrol (Gadavist) 9 mmol UD PRN IV 11/23/16 23:30 11/27/16 23:29 Duloxetine HCl (Cymbalta Cap) 30 mg DAILY@1700 PO 11/24/16 17:00 12/24/16 08:59 11/26/16 17:24 30 MG Rosuvastatin Calcium 10 mg 10 mg DAILY PO 11/25/16 09:00 12/25/16 08:59 11/27/16 08:01 10 MG Famotidine 20 mg/ Dextrose 102 ml @ 200 mls/hr Q12H IV 11/25/16 02:00 12/25/16 01:59 11/27/16 13:49 200 MLS/HR Acetaminophen/ Empty Bag (Ofirmev IV/ Empty Iv Bag 100ml) 65 ml @ 260 mls/hr Q6H PRN IV 11/25/16 01:15 12/25/16 01:14 11/25/16 01:58 260 MLS/HR Gadopentetate Dimeglumine (Magnevist) 20 ml UD PRN IV 11/25/16 02:45 11/29/16 02:44 Aspirin (Ecotrin Tab) 81 mg QAM PO 11/26/16 09:00 12/26/16 08:59 11/27/16 08:00 81 MG Clopidogrel Bisulfate (plAVix TAB) 75 mg QAM PO 11/26/16 09:00 12/26/16 08:59 11/27/16 08:00 75 MG Prednisone (PredniSONE TAB) 40 mg DAILY PO 11/26/16 09:00 12/26/16 08:59 11/27/16 08:00 40 MG Metoprolol Succinate (Toprol Xl Tab) 25 mg QAM PO 11/27/16 09:00 12/27/16 08:59 11/27/16 08:03 25 MG Non-Formulary Medication 1 ea DAILY PO 11/27/16 09:00 12/27/16 08:59 11/27/16 08:04 1 EA Cholecalciferol (Vitamin D Tab) 2,000 inter.unit DAILY PO 11/27/16 09:00 12/27/16 08:59 11/27/16 08:03 2,000 INTER.UNIT Cetirizine HCl 10 mg 10 mg DAILY PRN PO 11/27/16 09:00 12/27/16 08:59 Sodium Chloride (/2 Nss 1000ml) 1,000 ml @ 80 mls/hr [id number] IV 11/27/16 08:00 12/27/16 07:59 11/27/16 08:48 80 MLS/HR Impression 66 year old male s/p TIA symptoms and new right facial numbness Plan 1. continue plavix 75 mg and aspirin 81 mg x 3 months and then stop aspirin and continue plavix for a lifetime 2. need strict control of cholesterol below 70 3. permissive hypertension would not allow to elevate > 180/100 4. reaction to MRI dye would note on allergy list if a true allergy 5. would reduce caffeine use 6. once past the initial event would continue blood pressure control 7. EEG no seizure activity 8. cardiac evaluation for any abnormal rhythm or event- no further events overnight-will have follow up with cardiology and are planning a sleep study. 9. healthy life style discussed with patient and 10. cardionet as out patient 11. will see as out patient in neurology Radha Odom PAC schedule in 2-3 weeks. I have discussed above patient with Dr Radha Sawyer, neurology AGUEDA Sawyer MD
[2016-11-27] MEDS: DULOXETINE (CYMBALTA) 30 MG CAP PO SCH (16:58)
[2016-11-27 17:02] VITALS: BP 160/95; PULSE 69; TEMP 36.6; O2SAT 94
--- NOTE | 2016-11-27 17:10 | Progress Note ---
Medicine Progress Note Date & Time of Visit: Nov 27, 2016 at 17:01. Subjective patient states he feels better overall denies dizziness, chest pain, dyspnea, palpitations no focal neuro symptoms denies other symptoms states he is ready and would like to be discharged today Objective Last 8 Hrs Date Time Temp Pulse Resp B/P Pulse Ox O2 Delivery O2 Flow Rate FiO2 11/27/16 16:01 Room Air 11/27/16 14:58 36.6 69 20 160/95 94 Room Air 11/27/16 12:00 Room Air Physical Exam: General- oriented x 3, not in distress, speaks in sentences with no effort Eyes- anicteric Neck-no JVD Lungs- clear breath sounds bilaterally Heart-normal rate, regular rhythm; no murmurs Abdomen- normal bowel sounds, soft, nontender Extremities- no pretibial edema, no calf tenderness; peripheral pulses intact Neuro- alert, oriented x 3; no gross focal deficits Skin- warm & dry Laboratory Results: Last 24 Hours Test 11/27/16 05:03 11/27/16 12:22 White Blood Count 18.18 K/uL Red Blood Count 3.86 M/uL Hemoglobin 12.2 g/dL Hematocrit 36.7 % Mean Corpuscular Volume 95.1 fL Mean Corpuscular Hemoglobin 31.6 pg Mean Corpuscular Hemoglobin Concent 33.2 g/dl Platelet Count 178 K/uL Mean Platelet Volume 11.7 fL Neutrophils (%) (Auto) 80.3 % Lymphocytes (%) (Auto) 12.0 % Monocytes (%) (Auto) 6.9 % Eosinophils (%) (Auto) 0.1 % Basophils (%) (Auto) 0.1 % Neutrophils # (Auto) 14.61 K/uL Lymphocytes # (Auto) 2.19 K/uL Monocytes # (Auto) 1.26 K/uL Eosinophils # (Auto) 0.01 K/uL Basophils # (Auto) 0.01 K/uL RDW Standard Deviation 44.2 fL RDW Coefficient of Variation 12.8 % Immature Granulocyte % (Auto) 0.6 % Immature Granulocyte # (Auto) 0.10 K/uL Sodium Level 148 mmol/L 146 mmol/L Potassium Level 3.7 mmol/L 4.1 mmol/L Chloride Level 112 mmol/L 109 mmol/L Carbon Dioxide Level 28 mmol/L 27 mmol/L Anion Gap 8.0 mmol/L 10.0 mmol/L Blood Urea Nitrogen 22 mg/dl 18 mg/dl Creatinine 0.91 mg/dl 1.00 mg/dl Est Creatinine Clear Calc Drug Dose 93.7 ml/min 85.3 ml/min Estimated GFR () 101.4 90.5 Estimated GFR (Non- 87.5 78.1 BUN/Creatinine Ratio 24.0 18.0 Random Glucose 94 mg/dl 137 mg/dl Calcium Level 8.1 mg/dl 8.4 mg/dl Magnesium Level 2.2 mg/dl Assessment & Plan 66 year old male with history of Hypertension, Dyslipidemia, Hypothyroidism presenting with episode of right sided weakness. TRANSIENT ISCHEMIC ATTACK - presented with sudden onset of rt sided weakness, resolved in few minutes - MRI OF BRAIN : 1. No convincing evidence for acute infarct. A 5 mm focus focus of increased signal intensity within the periventricular white matter of the left parietal lobe may reflect a subacute to chronic lacunar infarct. 2. No intracranial masses or pathologic enhancement. MRA Neck: unremarkable Echo: Grade 1 diastolic dysfunction - evaluated by Neurologist Dr. Sawyer/MARGE Odom - Plavix added to Aspirin (needs at least 3 months of Plavix with Aspirin, then Plavix only) Will need good Blood pressure control as outpatient Possible Cardionet monitoring as outpatient monitor Lipid profile - ff up with Neurologist in 2-3 weeks SVT EPISODES - noted while being monitored in Telemetry - lasting for a few minutes, asymptomatic - Cardiology consulted Metoprolol XL 25mg daily initiated, no recurrence of SVTs, continue for now Will need outpatient Sleep Study to r/o Obstructive Sleep Apnea (Cardiology to arrange) Zio patch also to be placed (Cardiology to arrange) - ff up with Dr. Garcia in 1 month UNCONTROLLED HYPERTENSION - usual ACEI and HCTZ held due to acute renal failure - placed on Metoprolol XL 25mg continue Benazepril 20mg daily and discontinue HCTZ - may add Amlodipine if needed - monitor BP as outpatient ACUTE RENAL FAILURE - Pre-renal etiology likely - IV fluids given - resolved POSSIBLE GADOLINIUM CONTRAST ALLERGIC REACTION noted to have wheezing, hypotension after MRA with contrast - Hydralazine also given prior to symptoms, thus discontinued given Solumedrol, Benadryl-- > stabilized - Solumedrol changed to Prednisone taper on discharge Cetirizine 10mg daily given, PRN Cetirizine on discharge - Gadolinium contrast added to allergy list patient requesting for Epipen, will also prescribe VISUAL SYMPTOMS, Resolved - patient reported seeing "bubbles" after MRI procedure, evaluated by Ophthalmology - no intervention recommended at this time - ff up as outpatient HYPERLIPIDEMIA: fasting lipid panel LDL elevated > 100 increased Crestor to 10 mg daily repeat fasting lipid panel in 4 weeks MILD ELEVATION OF TROPONIN : due to hypertensive urgency pt denies of any chest pain , EKG no ischemic change ECHO * -- Conclusions -- * Normal LV chamber size with mild concentric LVH, sigmoid appearing septum. * Normal LV systolic function, EF 60-65%. * No segmental left ventricular wall motion abnormalities are noted. * Grade I diastolic dysfunction. * No significant valvular pathology. * Intact interatrial septum. HYPOTHYROIDISM ; cont Levothyroxine TSH -normal FULL CODE DVT PROPHYLAXIS : moderate risk Sub q heparin given scd and teds DISPOSITION : discussed plan of care with patient and his son, they are both agreeable and comfortable with plan of care d/c home today ff up with PCP in 3-5 days ff up with Neurologist Dr. Sawyer in 2 weeks ff up with Photo Manager Dr. Garcia in 1 month Current Inpatient Medications: Current Inpatient Medications Medications (Trade) Dose Ordered Sig/Alphonse Route Start Time Stop Time Status Last Admin Dose Admin Miscellaneous Information (Pharmacist Discharge Med Rec Consult) 1 ea UD PRN N/A 11/23/16 18:15 12/23/16 18:14 Acetaminophen (Tylenol Tab) 650 mg Q4H PRN PO 11/23/16 18:15 12/23/16 18:14 11/24/16 15:21 650 MG Al Hydrox/Mg Hydrox/Simethicone (Maalox Max Susp) 15 ml Q4H PRN PO 11/23/16 18:15 12/23/16 18:14 Magnesium Hydroxide (Milk Of Magnesia Susp) 30 ml Q12H PRN PO 11/23/16 18:15 12/23/16 18:14 Zolpidem Tartrate (Ambien Tab) 5 mg HSZ PRN PO 11/23/16 18:15 12/23/16 18:14 Ondansetron HCl (Zofran Inj) 4 mg Q6H PRN IV 11/23/16 18:15 12/23/16 18:14 Nitroglycerin (Nitrostat Tab) 0.4 mg UD PRN SL 11/23/16 18:15 12/23/16 18:14 Polyethylene (Miralax Powder Packet) 17 gm DAILY PRN PO 11/23/16 18:15 12/23/16 18:14 Amitriptyline HCl (Elavil Tab) 10 mg HS PO 11/23/16 21:00 12/23/16 20:59 11/26/16 22:07 10 MG Folic Acid (Folvite Tab) 1 mg DAILY PO 11/24/16 09:00 12/24/16 08:59 Levothyroxine Sodium (Synthroid Tab) 88 mcg DAILYBB PO 11/24/16 06:00 12/24/16 06:59 11/27/16 05:29 88 MCG Multivitamins/ Minerals (Multivitamin W/ Minerals Tab) 1 tab DAILY PO 11/24/16 09:00 12/24/16 08:59 11/27/16 08:00 1 TAB Gadobutrol (Gadavist) 9 mmol UD PRN IV 11/23/16 23:30 11/27/16 23:29 Duloxetine HCl (Cymbalta Cap) 30 mg DAILY@1700 PO 11/24/16 17:00 12/24/16 08:59 11/27/16 16:58 30 MG Rosuvastatin Calcium 10 mg 10 mg DAILY PO 11/25/16 09:00 12/25/16 08:59 11/27/16 08:01 10 MG Famotidine 20 mg/ Dextrose 102 ml @ 200 mls/hr Q12H IV 11/25/16 02:00 12/25/16 01:59 11/27/16 13:49 200 MLS/HR Acetaminophen/ Empty Bag (Ofirmev IV/ Empty Iv Bag 100ml) 65 ml @ 260 mls/hr Q6H PRN IV 11/25/16 01:15 12/25/16 01:14 11/25/16 01:58 260 MLS/HR Gadopentetate Dimeglumine (Magnevist) 20 ml UD PRN IV 11/25/16 02:45 11/29/16 02:44 Aspirin (Ecotrin Tab) 81 mg QAM PO 11/26/16 09:00 12/26/16 08:59 11/27/16 08:00 81 MG Clopidogrel Bisulfate (plAVix TAB) 75 mg QAM PO 11/26/16 09:00 12/26/16 08:59 11/27/16 08:00 75 MG Prednisone (PredniSONE TAB) 40 mg DAILY PO 11/26/16 09:00 12/26/16 08:59 11/27/16 08:00 40 MG Metoprolol Succinate (Toprol Xl Tab) 25 mg QAM PO 11/27/16 09:00 12/27/16 08:59 11/27/16 08:03 25 MG Non-Formulary Medication 1 ea DAILY PO 11/27/16 09:00 12/27/16 08:59 11/27/16 08:04 1 EA Cholecalciferol (Vitamin D Tab) 2,000 inter.unit DAILY PO 11/27/16 09:00 12/27/16 08:59 11/27/16 08:03 2,000 INTER.UNIT Cetirizine HCl 10 mg 10 mg DAILY PRN PO 11/27/16 09:00 12/27/16 08:59 Sodium Chloride (1/2 Nss 1000ml) 1,000 ml @ 80 mls/hr [id number] IV 11/27/16 08:00 12/27/16 07:59 11/27/16 08:48 80 MLS/HR
[2016-11-27] MEDS ORDERED: TPRSR25 PO (17:22)
[2016-11-27] MEDS ORDERED: PRD10 PO (17:22)
[2016-11-27] MEDS ORDERED: PLV75 PO (17:22)
[2016-11-27] MEDS ORDERED: BENA20TA14 PO (17:22)
[2016-11-27] MEDS ORDERED: EPP3/2 IM (17:22)
[2016-11-27] MEDS ORDERED: ZYR10 PO (17:22)
--- NOTE | 2016-11-27 17:28 | Discharge Instructions ---
Discharge Instructions Admission Reason for Admission: TIA Discharge Discharge Diagnosis / Problem: Transient Ischemic Attack Discharge Goals Goal(s): Diagnostic testing, Therapeutic intervention Activity Recommendations Activity Limitations: as noted below (no heavy exertion or driving until re- evaluated by Primary Care Physician) . Instructions / Follow-Up Instructions / Follow-Up FOLLOW UP WITH: PRIMARY CARE PHYSICIAN DR. ZACARIAS ON Thursday12/01/16 AT 11:10AM. CARDIOLOGY OFFICE NEXT WEEK (CLINIC TO CALL WITH APPOINTMENT) GOLF COURSE ARCHITECT DR. PAGAN IN 1 MONTH. T[address] NO[address] NEUROLOGIST [address] KOVACS IN 2 WEEKS. TEL. NO. INSURANCE ASSOCIATE ADVISED. Risk Factors for Stroke: You can reduce your chances of stroke by working with your medical provider to adopt a healthy lifestyle. Some specific ways to lower your chance of stroke are: * If you are a smoker, now is the time to stop smoking cigarettes * If you are diabetic, improve the control of your blood sugars * Avoid excessive amounts of alcohol * Control high blood pressure * Lose weight if you are overweight * Be sure to lead an active lifestyle * Eat a healthy diet low in salt, cholesterol and fat You should know about other risk factors for stroke that you are unable to control. These include: * Age 55 years or older * Male gender * Certain racial groups: , or / * Family History of Stroke, Mini stroke or Heart Attack * Sickle Cell Disease Follow Up: It is important for you to keep your follow up appointments with your medical provider. Current Hospital Diet Patient's current hospital diet: AHA Diet (Heart Healthy) Discharge Diet Recommended Diet: AHA Diet (Heart Healthy) Procedures Procedures Performed: EEG Pending Studies Studies pending at discharge: yes List of pending studies: Sleep Study, Zio Patch Placement Laboratory Results Hemoglobin A1c Test 11/23/16 16:03 Range/Units Estimated Average Glucose 105 mg/dl Hemoglobin A1c 5.3 4.5-5.6 % Lipid Panel Test 11/24/16 05:30 Range/Units Triglycerides Level 273 H 0-150 mg/dl Cholesterol Level 191 0-200 mg/dl HDL Cholesterol 32 mg/dl Cholesterol/HDL Ratio 6.0 LDL Cholesterol, Calculated 104 mg/dl Medical Emergencies . Who to Call and When: Medical Emergencies: Call 911 immediately if you experience any of the following warning signs and symptoms of Stroke: * Sudden numbness or weakness of the face, arm or leg, especially on one side of the body * Sudden confusion, trouble speaking or understanding * Sudden trouble seeing in one or both eyes * Sudden trouble walking, dizziness, loss of balance or coordination * Sudden severe headache with no cause Do not delay calling 911 if you experience any warning signs or symptoms of a stroke. Delay in seeking medical attention may affect what treatments can be given to you. . Non-Emergent Contact Non-Emergency issues call your: Primary Care Provider dizziness, weakness, shortness of breath, palpitations Past History Medical & Surgical History: (1) TIA (transient ischemic attack) (2) History of urinary calculi (3) Hypothyroidism (4) Rheumatoid arthritis (5) Hyperlipidemia (6) Hiatal hernia (7) Chronic osteoarthritis (8) HTN (hypertension) (9) Status post lumbar surgery . "Provider Documentation" section prepared by Henrique Covington. Stroke Core Measures Reason no t-PA for Stroke: Treatment not indicated Reason no antithrom by day 2: Treatment provided - N/A Reason no antithrom at D/C: Treatment provided - N/A Reason no statin at D/C: Treatment provided - N/A Reason no anticoag w/a fib: Treatment not indicated VTE Core Measure Inpt VTE Proph given/why not?: Unfractionated heparin SQ
--- NOTE | 2016-11-27 17:43 | Discharge Summary ---
Discharge Summary Admission Date: Nov 23, 2016 at 18:18 Discharge Date: Nov 27, 2016 Discharge Disposition: Home Principal Diagnosis: TRANSIENT ISCHEMIC ATTACK Secondary Diagnoses/Problems: PLEASE REFER TO HOSPITAL COURSE BELOW. Procedures: BRAIN MRI, MRA HEAD, ECHO, EEG Consultations: Neurologist Dr. Sawyer, Printing Plate Maker Dr. Pagan, Power Transformer Repairer Dr. Colvin Pending Studies/Follow-Up: Please refer to hospital course below. Medication Reconciliation New Medications: Benazepril (Lotensin) 20 Mg Tab 20 MG PO DAILY for 30 Days, #30 TAB 2 Refills Epinephrine (Epipen) 0.3 Mg/0.3 Ml Inj 0.3 MG IM UD, #1 UNIT 2 Refills in the setting of allergic reaction, use immediately if with: trouble breathing. Feeling of tightness in the throat. Feeling lightheaded or think they might pass out. Prednisone (Prednisone) 10 Mg Tab 1 TAB PO UD, #11 TABS 0 Refills take 4 tabs po daily x 1 day, then take 2 tabs po daily x 2 days, then take 1 tab po daily x 2 days, then take 1/2 tab po daily x 2 days then STOP Cetirizine HCl (All Day Allergy) 10 Mg Tab 10 MG PO DAILY PRN for pruritus, rash, #20 TAB 2 Refills Clopidogrel Bisulfate (Clopidogrel) 75 Mg Tab 75 MG PO QAM for 30 Days, #30 TAB 6 Refills Clopidogrel Bisulfate (Clopidogrel) 75 Mg Tab 75 MG PO QAM for 30 Days, #30 TAB 2 Refills Metoprolol Succinate (Metoprolol Succinate ER) 25 Mg Tabcr 25 MG PO QAM for 30 Days, #30 TABS 2 Refills Rosuvastatin Calcium (Crestor) 5 Mg Tab 10 MG PO DAILY for 30 Days, #60 TAB 6 Refills Continued Medications: Amitriptyline Hcl (Elavil *) 10 Mg Tab 10 MG PO HS, 0 Refills Aspirin Enteric Coated (Ecotrin Or Generic *) 81 Mg Ectab 81 MG PO DAILY Duloxetine HCl (Cymbalta) 30 Mg Cap 1 CAP PO DAILY for 30 Days, #30 CAP 5 Refills Folic Acid (Folic Acid) 1 Mg Tab 1 MG PO DAILY Levothyroxine Sodium (Levothyroxine Sodium) 88 Mcg Tab 88 MG PO DAILY Multiple Vitamins W/ Minerals (Preservision Areds) 1 Cap Cap 1 CAP PO BID [Vitamin D] () 2000 UNIT PO DAILY Discontinued Medications: Benazepril/Hctz (Lotensin Hct) 20 Mg/25 Mg Tab 1 TAB PO DAILY, TAB Rosuvastatin Calcium (Crestor) 5 Mg Tab 5 MG PO DAILY, TAB Admission Information HPI (per Admitting provider): The patient is a 66 year old male with past medical hx of HTN , hyperlipidemia , hypothyroidism , presented to ED with complain of rt sided transient weakness happened approx 2 hrs prior to arrival to ED today afternoon pt felt sudden onset of rt foot numbness , weakness -as if his rt foot giving away/slipping , did not sustain a fall , started to experience tingling numbness of rt arm rapidly the sensation changed to lack of sensation , Rt arm felt very heavy , can not lift it felt nauseous , headache , Dizzy and lightheaded felt confused , could not figure out how to unlock his I phone , briefly remembers he was holding his I phone with left hand and could not figure out what he was doing his symptom lasted for few minutes then resolved did not had any chest pain or SOB , no palpitation felt dizzy and lightheaded after arrival to ED he was completely symptom free other than continued numb feeling on rt arm which gradually improved pt's BP was markedly elevated 207/157 on arrival to ED during my Interview -pt was very coherent , no visual symptom , no dysarthria- concern about stoke as his older brother had similar symptom at his Age and suffered multiple mini strokes Physical Exam (per Admitting): General Appearance: no apparent distress Head: normocephalic, atraumatic Eyes: PERRL, EOMI Neck: supple, no adenopathy, thyroid normal, no JVD, no carotid bruits, trachea midline Respiratory/Chest: chest non-tender, lungs clear, normal breath sounds, no respiratory distress Cardiovascular: regular rate, rhythm, no edema, no gallop, no JVD, no murmur , normal peripheral pulses Abdomen/GI: normal bowel sounds, non tender, soft Neurologic/Psych: alert, normal mood/affect, oriented x 3, + motor weakness (rt arm weakness 4/5 ), + pertinent finding (mild weakness on rt arm ) Skin: normal color, warm/dry, no rash Lymphatic: no adenopathy Hospital Course 66 year old male with history of Hypertension, Dyslipidemia, Hypothyroidism presenting with episode of right sided weakness. TRANSIENT ISCHEMIC ATTACK - presented with sudden onset of rt sided weakness, resolved in few minutes - MRI OF BRAIN : 1. No convincing evidence for acute infarct. A 5 mm focus focus of increased signal intensity within the periventricular white matter of the left parietal lobe may reflect a subacute to chronic lacunar infarct. 2. No intracranial masses or pathologic enhancement. MRA Neck: unremarkable Echo: Grade 1 diastolic dysfunction - evaluated by Neurologist Dr. Sawyer/MARGE Odom - Plavix added to Aspirin (needs at least 3 months of Plavix with Aspirin, then Plavix only) Will need good Blood pressure control as outpatient Possible Cardionet monitoring as outpatient monitor Lipid profile - ff up with Neurologist in 2-3 weeks SUPRAVENTRICULAR TACHYCARDIA (SVT) EPISODES - noted while being monitored in Telemetry - lasting for a few minutes, asymptomatic - Cardiology consulted Metoprolol XL 25mg daily initiated, no recurrence of SVTs, continue for now Will need outpatient Sleep Study to r/o Obstructive Sleep Apnea (Cardiology to arrange) Zio patch also to be placed (Cardiology to arrange) - ff up with Dr. Pagan in 1 month UNCONTROLLED HYPERTENSION - usual Benazepril and HCTZ held due to acute renal failure - started on Metoprolol XL 25mg on discharge, continue Metoprolol, resume Benazepril 20mg daily and discontinue HCTZ - may add Amlodipine if needed - monitor BP as outpatient ACUTE RENAL FAILURE - Pre-renal etiology likely - IV fluids given - resolved POSSIBLE GADOLINIUM CONTRAST ALLERGIC REACTION noted to have wheezing, hypotension after MRA with contrast - Hydralazine also given prior to symptoms, thus discontinued given Solumedrol, Benadryl-- > stabilized - Solumedrol changed to Prednisone taper on discharge Cetirizine 10mg daily given, PRN Cetirizine on discharge - Gadolinium contrast added to allergy list patient requesting for Epipen, will also prescribe VISUAL SYMPTOMS, Resolved - patient reported seeing "bubbles" after MRI procedure, evaluated by Ophthalmology - no intervention recommended at this time - ff up as outpatient HYPERLIPIDEMIA: fasting lipid panel LDL elevated > 100 increased Crestor to 10 mg daily repeat fasting lipid panel in 4 weeks MILD ELEVATION OF TROPONIN : due to hypertensive urgency pt denies of any chest pain , EKG no ischemic change ECHO * -- Conclusions -- * Normal LV chamber size with mild concentric LVH, sigmoid appearing septum. * Normal LV systolic function, EF 60-65%. * No segmental left ventricular wall motion abnormalities are noted. * Grade I diastolic dysfunction. * No significant valvular pathology. * Intact interatrial septum. HISTORY OF RHEUMATOID ARTHRITIS asymptomatic ff up with Rn Social Work HYPOTHYROIDISM ; cont Levothyroxine TSH -normal FULL CODE DVT PROPHYLAXIS : moderate risk Sub q heparin given scd and teds DISPOSITION : discussed plan of care with patient and his son, they are both agreeable and comfortable with plan of care d/c home today ff up with PCP in 3-5 days ff up with Neurologist Dr. Sawyer in 2 weeks ff up with Printing Plate Maker Dr. Pagan in 1 month Total time spent on discharge = 45 minutes This includes examination of the patient, discharge planning, medication reconciliation, and communication with other providers. Discharge Instructions Discharge Instructions Admission Reason for Admission: TIA Discharge Discharge Diagnosis / Problem: Transient Ischemic Attack Discharge Goals Goal(s): Diagnostic testing, Therapeutic intervention Activity Recommendations Activity Limitations: as noted below (no heavy exertion or driving until re- evaluated by Primary Care Physician) . Instructions / Follow-Up Instructions / Follow-Up FOLLOW UP WITH: PRIMARY CARE PHYSICIAN DR. ZACARIAS ON Thursday12/01/16 AT 11:10AM. CARDIOLOGY OFFICE NEXT WEEK (CLINIC TO CALL WITH APPOINTMENT) CONSTRUCTION EQUIPMENT OPERATOR DR. PAGAN IN 1 MONTH. TEL NO[address] NEUROLOGIST [address]. SAWYER IN 2 WEEKS. TEL. NO. MIRROR MACHINE FEEDER ADVISED. Risk Factors for Stroke: You can reduce your chances of stroke by working with your medical provider to adopt a healthy lifestyle. Some specific ways to lower your chance of stroke are: * If you are a smoker, now is the time to stop smoking cigarettes * If you are diabetic, improve the control of your blood sugars * Avoid excessive amounts of alcohol * Control high blood pressure * Lose weight if you are overweight * Be sure to lead an active lifestyle * Eat a healthy diet low in salt, cholesterol and fat You should know about other risk factors for stroke that you are unable to control. These include: * Age 55 years or older * Male gender * Certain racial groups: , or / * Family History of Stroke, Mini stroke or Heart Attack * Sickle Cell Disease Follow Up: It is important for you to keep your follow up appointments with your medical provider. Current Hospital Diet Patient's current hospital diet: AHA Diet (Heart Healthy) Discharge Diet Recommended Diet: AHA Diet (Heart Healthy) Procedures Procedures Performed: EEG Pending Studies Studies pending at discharge: yes List of pending studies: Sleep Study, Zio Patch Placement Laboratory Results Hemoglobin A1c Test 11/23/16 16:03 Range/Units Estimated Average Glucose 105 mg/dl Hemoglobin A1c 5.3 4.5-5.6 % Lipid Panel Test 11/24/16 05:30 Range/Units Triglycerides Level 273 H 0-150 mg/dl Cholesterol Level 191 0-200 mg/dl HDL Cholesterol 32 mg/dl Cholesterol/HDL Ratio 6.0 LDL Cholesterol, Calculated 104 mg/dl Medical Emergencies . Who to Call and When: Medical Emergencies: Call 911 immediately if you experience any of the following warning signs and symptoms of Stroke: * Sudden numbness or weakness of the face, arm or leg, especially on one side of the body * Sudden confusion, trouble speaking or understanding * Sudden trouble seeing in one or both eyes * Sudden trouble walking, dizziness, loss of balance or coordination * Sudden severe headache with no cause Do not delay calling 911 if you experience any warning signs or symptoms of a stroke. Delay in seeking medical attention may affect what treatments can be given to you. . Non-Emergent Contact Non-Emergency issues call your: Primary Care Provider dizziness, weakness, shortness of breath, palpitations Past History Medical & Surgical History: (1) TIA (transient ischemic attack) (2) History of urinary calculi (3) Hypothyroidism (4) Rheumatoid arthritis (5) Hyperlipidemia (6) Hiatal hernia (7) Chronic osteoarthritis (8) HTN (hypertension) (9) Status post lumbar surgery . "Provider Documentation" section prepared by Henrique Covington. Stroke Core Measures Reason no t-PA for Stroke: Treatment not indicated Reason no antithrom by day 2: Treatment provided - N/A Reason no antithrom at D/C: Treatment provided - N/A Reason no statin at D/C: Treatment provided - N/A Reason no anticoag w/a fib: Treatment not indicated VTE Core Measure Inpt VTE Proph given/why not?: Unfractionated heparin SQ
[2016-11-28 15:36] LABS: ANTITHROMBINIII ACTIVITY** 100 % activity (80-120); B2 GLYCOPROTEIN IGA <9 SAU (<=20); B2 GLYCOPROTEIN IGG <9 SGU (<=20); B2 GLYCOPROTEIN IGM <9 SMU (<=20); LUPUS ANTICOAGULANT** TC36573X Negative (Negative); PROTEIN C ACTIVITY** TC 1777X 132 % (70-180); PROTEIN S ACT(FUNCT)**1779X 93 % (70-150)
[2016-12-02 12:32] LABS: ANA TITER 1:40 TITER (<1:40)
[2016-12-02 12:50] LABS: FACTOR VIII ACTIV**SEND TO GMC 179 % (55 - 145)
== END 2016-11-27 18:00 | disposition home or self-care (01) | DRG 69 ==
LOC: ENRESERVDT → ENRESERVTM → C.EDB 15:14 → C.2T 18:18
PROVIDERS: ADMIT Hospitalist; ATTEND Internal Medicine
DX: G45.9 Transient cerebral ischemic attack, unspecified (principal); N17.9 Acute kidney failure, unspecified; I47.1 Supraventricular tachycardia; Q21.1 Atrial septal defect; I16.0 Hypertensive urgency; E78.5 Hyperlipidemia, unspecified; E03.9 Hypothyroidism, unspecified; M19.90 Unspecified osteoarthritis, unspecified site; M06.9 Rheumatoid arthritis, unspecified; I11.9 Hypertensive heart disease without heart failure; H26.9 Unspecified cataract; H35.30 Unspecified macular degeneration; G47.33 Obstructive sleep apnea (adult) (pediatric); I95.9 Hypotension, unspecified; Z79.82 Long term (current) use of aspirin; Z79.899 Other long term (current) drug therapy; Z88.8 Allergy status to other drugs, medicaments and biological substances; Z91.012 Allergy to eggs; Z85.820 Personal history of malignant melanoma of skin; Z88.0 Allergy status to penicillin; Z88.7 Allergy status to serum and vaccine; Z98.1 Arthrodesis status; Z87.442 Personal history of urinary calculi; Z90.79 Acquired absence of other genital organ(s); Z82.49 Family history of ischemic heart disease and other diseases of the circulatory system; Z83.2 Family history of diseases of the blood and blood-forming organs and certain disorders involving the immune mechanism

== ENCOUNTER → 2017-01-15 | Outpatient (CLI) | payer OTHER ==
[~2017-01-15] MED LIST changes: +BENA20TA14 PO; +CRS5 PO; +CYM/30 PO; +EPP3/2 IM; -LTN/2025 PO; -MTH25; +PLV75 PO; +PRD10 PO; -PRED-301 PO; -ROSU5TAB PO; +TPRSR25 PO; +ZYR10 PO
--- NOTE | 2017-01-16 06:41 | PAP/PSG TECHNICIAN REPORT ---
[facility] Machine Load Clerk Polysomnogram Report Study name: None Report date: 01/16/2017 Study date: 01/15/2017 Referring Physician: Martin CRUZ M.D. Name: CHARLES SANCHEZ Interpreting Physician: Omar Cruz M.D. Date of : 1950 Machine Load Clerk: Vladimir Flynn RPSGT. Sex: Male Age: 66 StudyType: PSG Weight: 200 lbs Height: 66 years, Height 6' 0" Neck Circum:15.5 inches BMI: 27.12 Medications: LOTENSIN 20 MG, EPI-PEN 0.3 MG/0.3 ML, PLAVIX 75 MG, CETIRIZINE HCL 10 MG, TOPROL XL 25 MG, CRESTOR 10 MG, ELAVIL 10 MG, CYMBALTA 30 MG, LEVOXYL 88 MCG, FINACEA, METROGEL, VITAMIN D, ASPIRIN 81 MG Patient History PATIENT HAS HISTORY OF INSOMNIA, SNORING AND TACHYCARDIA. HE GENERALLY WILL SLEEP FOR 10 HOURS A DAY. 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 HE IS HERE TODAY FOR AN EVALUATION OF JERI. ESS = 2 RM 7 Parameters Monitored NPSG: E1-M2, E2-M1, Fp1-M2, Fp2-M1, F3-M2, F4-M2, F4-M1, C3-M2, C4-M2, C4-M1, O1-M2, O2-M2, O2-M1, T3-M2, T4-M1, P3-M2, P4-M1, CHIN1, CHIN2, HR, EKG, Legs, PFLOW, SNOR, FLOW, CFLOW, Tidal Volume, THOR, ABDO, SpO2, PLTH, CPRESS, ETCO2 Wave, ETCO2, pH Sleep Architecture Sleep Stages Time at Lights Off 10:35:48 PM STAGES Time (min.) TST (%) Time at Lights On 5:50:48 AM Wake 83.0 -- Total Recording Time (TRT) 435.50 min. N1 44.0 13 Total Sleep Period (TSP) 416.0 min. N2 183.5 52 Total Sleep Time (TST) 352.0min. N3 70.5 20 Awake Time 83.5 min. REM 54.0 15 Wake after Sleep Onset 64.5 min. Sleep Efficiency (SE) 81 % Sleep Onset Latency (WESLEY) 18.5 min. Number of Stage 1 Shifts None Awakenings 18 Stage Changes 109 Number of REM periods 7 REM 54.0 15 REM Latency 190.0 min. NREM 298.0 85 Body Position Analysis Supine Right Left Side Prone Vertical Total Sleep Time (min.) 89.8 212.0 98.4 310.46 0.0 0.0 Total Sleep Time (%) 12% 60% 28% 88 0% N/A% Total Sleep Time REM (min.) 6.0 34.8 13.2 None 0.0 0.0 Total Sleep Time NREM (min.) 35.5 177.2 85.2 None 0.0 0.0 Intermittent Wake (min.) 48.3 24.8 9.9 None 0.0 0.0 Total Sleep Period (%) 17% None None None None None Arousals Myoclonus (PLM) * Events Count Index Events Count Index Spontaneous 32 5 Events Awake (PLMW) 10 7.2 Respiratory 88 14.8 Events Asleep w/ Arousal (PLMA) 33 5.6 PLM 32 6 Events Asleep w/o Arousal (PLMS) 396 67.5 Snoring 1 0 Total Asleep 429 73.1 Total 153 26 Total 439 61 Respiratory Analysis * CA OA MA CH H RERA Total Count 21 26 18 0 103 20 168 Index 3.6 4.4 3.1 0 17.6 3 32.0 Mean Duration 21.8 24.2 21.8 0.00 23.7 15.8 22.5 Longest Duration 33.4 36.2 30.4 0.00 30.4 18.8 47.9 Respiratory Event Summary Total Supine ~Supine Right Left Prone REM NREM Apneas Count 65 29 36 32 4 N/A 15 50 Index 11.1 42 7 9.1 2.4 N/A 17 10 Hypopneas (4% Desat) Count 103 8 95 77 18 N/A 17 86 Index 17.6 11.6 18 21.8 11.0 N/A 18.9 17.3 Apneas & All Hypopneas Count 168 37 131 109 22 N/A 32 136 Index 28.6 53 25 31 13 N/A 35.6 27.4 Respiratory Events (Coconut Cooker+All Hyp+RERA) Count 168 39 149 127 22 N/A 32 136 Index 32.0 56 29 35.9 13.4 N/A 35.6 31.4 Respiratory Related Arousal Count 88 39 64 59 5 N/A 13 74 Index 14.8 33 12 17 3 N/A 14 15 Snoring Analysis Supine Right Left Prone REM NREM Total Snore duration 1.9 min Snores count 21 64 18 N/A 12 91 103 Snore mean duration 1.1 Sec Snores index 30 18 11 N/A 13.3 18.3 17.6 TST with snoring (%) 0.6% SpO2 Analysis Total REM NREM Awake <50% 0.0 min. 0.0 min. 0.0 min. 0.0 min. 51 - 60% 0.0 min. 0.0 min. 0.0 min. 0.0 min. 61 - 70% 0.0 min. 0.0 min. 0.0 min. 0.0 min. 71 - 80% 0.0 min. 0.0 min. 0.0 min. 0.0 min. 81 - 90% 27.1 min. 7.9 min. 13.0 min. 6.2 min. 91 - 100% 398.7 min. 46.0 min. 284.8 min. 68.0 min. Average 93 93 93 93 Minimum SpO2 81 82 81 82 Desaturation Event Index 22.8 38.9 25.8 2.2 # Desat. Events below 89% 42 16 25 1 Time(%) with Saturation below 89% 1.8 0.7 0.8 0.3 Time(min.) with Saturation below 89% 7.8 3.0 3.5 1.4 Heart Rate Analysis End Tidal CO2 Analysis Min (bpm) Max (bpm) Average (bpm) TSP (mins) % of TSP Awake 52 76 64 Above 55 mmHg 0.0 0.0 NREM 54 127 62 50-55 mmHg 0.0 0.0 REM 53 79 60 45-50 mmHg 0.5 0.1 Overall 53 127 61 40-45 mmHg 120.0 34.1 35-40 mmHg 124.2 35.3 30-35 mmHg 69.1 19.6 Average ETCO2 0.3 Supplemental O2 Values Minimum O2 level: None Value Start Time End Time Machine Load Clerk Comments Mr. Sanchez slept in the right, left and supine positions. No cardiac arrhythmia noted. Leg movements noted. No bruxism noted. Snoring was noted and scored as a 2 on a scale of 1 through 5. (0=no snoring, 5=snoring loud enough to be heard through a closed door or down the [address] way) Mr. Sanchez awoke to use the restroom 1 time during the night. Mr. Sanchez stated I did not sleep as well as I do when I am in my own bed. The final report will be interpreted and signed by a sleep physician. The completed physician report will then be placed in the patient medical record. Therapy (cm H2O) 0 TIB (min.) 435.0 TST (min.) 352.0 Sleep Onset (min.) 18.5 REM Onset From Sleep (min.) 190.0 Sleep Efficiency % 81 Wakefulness (%) 19 Wakefulness (min.) 83.5 NREM 1 (%) 13 NREM 1 (min.) 44.0 NREM 2 (%) 52 NREM 2 (min.) 183.5 NREM 3 (%) 20 NREM 3 (min.) 70.5 REM (%) 15 REM (min.) 54.0 # Arousals 153 Arousal Index 26 # Snore 103 Snore Index 17.6 AHI 28.6 AHI Supine 53 AHI Non-Supine 25 NREM AHI 27.4 REM AHI 35.6 RDI 32.0 # Obstructive Apnea 26 # Central Apnea 21 # Mixed Apnea 18 # Hypopneas 103 RERAs 20 Total Respiratory Events 194 Time Below SpO2 89% (min.) 6.5 Mean NREM SpO2 (%) 93 Mean REM SpO2 (%) 93 Mean Sleep SpO2 (%) 93 Min NREM SpO2 (%) 81 Min REM SpO2 (%) 82 Position Supine (min.) 89.8 Position Non-supine (min.) 310.5 LM Index Sleep 73.1 LM Index NREM 74.3 LM Index REM 66.7 Mean Heart Rate (bpm) 61 Min Heart Rate (bpm) 53
--- NOTE | 2017-02-02 09:56 | POLYSOMNOGRAPH REPORT ---
REFERRING PERSON: Dr. Susannah Cruz. ROAD SUPERVISOR: Vladimir Flynn. Mr. Sanchez is a 66-year-old male with a history of insomnia, snoring and tachycardia. He has had TIAs as well as MIs. He is sent to the sleep lab to evaluate him for obstructive sleep apnea. His B[place]roft sleepiness scale score on the evening of this study is 2. BMI is 27.12. Following the technical and digital specifications of the [place] [employer] (AASM) a standard diagnostic polysomnogram was performed monitoring EEG, EOG, EMG (chin and leg deviations), oxygen saturation, body position, digital video, respiratory effort and airflow. The sleep Stage and event scoring was based on the AASM Manual for the Scoring of Sleep and Associated Events 2007 edition. Apneas are defined as a drop in the peak thermal sensor excursion by >90% of baseline for at least 10 seconds. Hypopneas were scored using the 4% oxygen desaturation rule (4A-[employer]) and a decrease in the nasal pressure excursions by >30% of baseline for at least 10 seconds. Respiratory effort-related arousal (RERA's) is defined as a sequence of breaths lasting at least 10 seconds characterized by increasing respiratory effort or flattening of the nasal pressure waveform leading to an arousal from sleep when the sequence of breaths does not meet criteria for an apnea or hypopnea. Apnea Hypopnea index (AHI) is defined as the number of apneas and hypopneas occurring in an hour of sleep. Respiratory disturbance index (RDI) is defined as the number of apneas, hypopneas, and RERA's occurring in an hour of sleep. Mr. Sanchez's total sleep period time was 416 minutes with a total sleep time of 352 minutes. Sleep efficiency was 81%. Latency to sleep onset was 18.5 minutes with wake after sleep onset was 64.5 minutes. Total non-REM sleep time was 298 minutes. He spent 13% of that time in N1 sleep, 52% in N2 sleep and 20% in N3 sleep. REM latency was 190 minutes. Total REM sleep time was 54 minutes or 15% of total sleep time. There were 153 cortical arousals from sleep. Thirty-two of these arousals were spontaneous, 88 were due to respiratory events, 32 due to periodic limb movements of sleep and 1 was due to snoring. There were 429 periodic limb movements recorded on this test. Limb movement index was 73.1; however, limb movement with arousal index was 5.6. On this sleep study, there were 26 obstructive apneas, 21 central apneas and 18 mixed apneas. At 2:13 a.m., this patient flipped from lateral sleep to supine sleep and central events were noted with this position change. He remained supine for approximately 12 minutes at which point he flipped back to his right side and these central events resolved. There were 103 hypopnea and 20 RERA. Hypopnea appear to be obstructive. Apnea-hypopnea index was 28.6 consistent with moderately severe sleep apnea. His supine AHI was 53, REM AHI was 35.6. There were 103 snoring events recorded. Total sleep time with snoring was 0.6%. Mean saturation was 93% with desaturations to 81%. Saturations were less than 89 for 7.6 minutes of recorded time. There was no cardiac ectopy noted on this study. Heart rates during sleep ranged from a low of 53 beats per minute to a high of 127 beats per minute. For the most part heart rates remained from 50-80. End-tidal CO2 was recorded on this test. End tidal CO2s were between 40 and 45 mmHg for 34.1% of total sleep period time, between 35 and 40 mmHg for 35.3% and between 30 and 35 mmHg for 19.6% of total sleep period time. IMPRESSION AND PLAN: 66-year-old male with evidence of moderate to severe sleep apnea as well as mild nocturnal hypoxemia on this sleep study. The supine AHI was 53, REM AHI was 35.6. There were some central events noted buy these occurred when the patient flipped from lateral to supine sleep and ended when the patient repositioned. The clinical significance of these are uncertain. This patient would likely benefit from positive airway pressure therapy. He should return to the sleep lab for a full night titration and then started on CPAP at home following that titration. A download should be reviewed in 1 month both to check compliance as well as AHI and further pressure adjustments can occur at that time. This should eliminate any snoring, nocturnal hypoxemia as well as apnea.
== END | disposition home or self-care (01) ==
LOC: C.NEUR 20:00
PROVIDERS: ATTEND Family Medicine
DX: R06.83 Snoring (principal); F51.04 Psychophysiologic insomnia; Z86.73 Personal history of transient ischemic attack (TIA), and cerebral infarction without residual deficits; G47.10 Hypersomnia, unspecified